=== PATIENT | male | born 1985 | race Caucasian/White ===

== ENCOUNTER 2017-01-11 23:05 | Emergency (ER) | payer OTHER ==
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
[2017-01-11 23:16] VITALS: BP 154/104; PULSE 89; TEMP 98.9; BMI 42.0
== END 2017-01-11 23:22 | disposition home or self-care (01) ==
LOC: FER 23:05
DX: Z04.1 Encounter for examination and observation following transport accident (principal); V43.52XA Car driver injured in collision with other type car in traffic accident, initial encounter; Y93.89 Activity, other specified; Y92.410 Unspecified street and highway as the place of occurrence of the external cause; J45.909 Unspecified asthma, uncomplicated; I10 Essential (primary) hypertension
CPT/HCPCS: 99281-25

== ENCOUNTER 2018-03-12 18:20 | Emergency (ER) | payer OTHER ==
[2018-03-12 18:28] VITALS: BP 189/120; PULSE 82; TEMP 98.1; BMI 40.0
--- NOTE | 2018-03-12 18:41 | PDOC ---
History of Present Illness - General Chief Complaint: Injury Stated Complaint: ANKLE INJURY Time Seen by Provider: 03/12/18 18:29 History Source: Patient - History of Present Illness Occurred: reports: this evening Severity: Yes: moderate Lower Extremity Pain Location: left: ankle Method of Injury: Yes: twisted Past History - Past Medical History Allergies/Adverse Reactions: Allergies Allergy/AdvReac Type Severity Reaction Status Date / Time Penicillins Allergy Verified 03/12/18 18:24 Home Medications: Ambulatory Orders Losartan Potassium [Cozaar] 25 mg PO DAILY 02/23/16 Amlodipine Besylate 0 mg PO DAILY 01/11/17 Amlodipine Besylate 5 mg PO DAILY #30 tablet 03/12/18 Asthma: Yes COPD: No HTN: Yes (stop his meds 4 months ago) - Immunization History Immunization Up to Date: Yes - Suicide/Smoking/Psychosocial Hx Smoking History: Never smoked Have you smoked in the past 12 months: No Hx Alcohol Use: No Drug/Substance Use Hx: No Substance Use Type: None Review of Systems - Review of Systems Respiratory: No: Shortness of Breath Cardiac (ROS): No: Chest Pain ABD/GI: No: Nausea, Vomiting Musculoskeletal: Yes: Joint Pain, Joint Swelling Neurological: No: Headache, Weakness, Dizziness *Physical Exam - Vital Signs Last Vital Signs Temp Pulse Resp BP Pulse Ox 98.1 F 82 18 189/120 H 97 03/12/18 18:24 03/12/18 18:24 03/12/18 18:24 03/12/18 18:24 03/12/18 18:24 - Physical Exam General Appearance: Yes: Appropriately Dressed. No: Apparent Distress HEENT: positive: Normal Voice Neck: positive: Supple Respiratory/Chest: positive: Lungs Clear, Normal Breath Sounds. negative: Respiratory Distress Cardiovascular: positive: Regular Rate, S1, S2 Gastrointestinal/Abdominal: positive: Soft. negative: Tender Extremity: positive: Tender, Swelling (minimal swelling over lateral malaeolus of L ankle) Integumentary: positive: Dry, Warm Neurologic: positive: Fully Oriented, Alert, Normal Mood/Affect, Motor Strength 5/5 Moderate Sedation - Procedure Monitoring Vital Signs: Procedure Monitoring Vital Signs Temperature 98.1 F 03/12/18 18:24 Pulse Rate 82 03/12/18 18:24 Respiratory Rate 18 03/12/18 18:24 Blood Pressure 189/120 H 03/12/18 18:24 O2 Sat by Pulse Oximetry (%) 97 03/12/18 18:24 ED Treatment Course - RADIOLOGY Radiology Studies Ordered: Category Date Time Status ANKLE & FOOT-LEFT* [RAD] Stat Radiology 03/12/18 18:30 Ordered Medical Decision Making - Medical Decision Making 03/12/18 18:40 33 yo M, obesity (BMI 40), HTN, non-compliant w/ meds, here w/ L ankle injury after twisting injury today. Bearing weight but painful See exam Ankle sprain R/o fx -XR -pain control Asymptomatic hypertension BP 189/120 at triage, 178/94 on rpt Has h/o HTN and is non-compliant w/ meds, last took 5 mg norvasc 4 months ago Pt asymptomatic from a BP standpoint -will restart on meds -strongly encourage pmd f/u next week -strict return precautions given 03/12/18 19:11 XR neg for fx. CHANELL placed and crutches given. Will dc w/ RICE, ortho f/u as needed *DC/Admit/Observation/Transfer Diagnosis at time of Disposition: Ankle sprain Qualifiers: Encounter type: initial encounter Involved ligament of ankle: unspecified ligament Laterality: left Qualified Code(s): S93.402A - Sprain of unspecified ligament of left ankle, initial encounter - Discharge Dispostion Disposition: HOME - Prescriptions Prescriptions: Amlodipine Besylate 5 mg PO DAILY #30 tablet - Referrals Referrals: Jermain Ron MD [Staff Physician] - Clark Comer MD [Staff Physician] - - Patient Instructions Printed Discharge Instructions: Essential Hypertension, DI for Ankle Sprain Additional Instructions: Your ankle x-ray was normal. You most likely sustained a sprain. Use CHANELL and elevated extremity for swelling. Take Motrin or Tylenol for pain as needed. Also use crutches for assistance with weight bearing. If pain persists after 2 weeks, please call Dr. Comer of orthopedics. Your blood pressure was significantly elevated in the ED, you were counseled on the dangers of untreated hypertension such as heart disease, stroke and kidney disease. You were restarted on your high blood pressure medication. Please call your PMD on Wednesday and make an appointment for further management. Also consider losing weight as being overweight can significantly increase blood pressure If you develop headache, dizziness, focal weakness, chest pain or shortness of breath, return to ER immediately - Post Discharge Activity
[2018-03-12] MEDS ORDERED: IBUPROFEN 400 MG TABLET (FP) PO ONE ×2 (19:00→19:01)
== END 2018-03-12 19:24 | disposition home or self-care (01) ==
LOC: JERFT 18:20
DX: S93.402A Sprain of unspecified ligament of left ankle, initial encounter (principal); X50.1XXA Overexertion from prolonged static or awkward postures, initial encounter; Y93.89 Activity, other specified; Y92.89 Other specified places as the place of occurrence of the external cause; Y99.8 Other external cause status; I10 Essential (primary) hypertension; Z91.14 Patient's other noncompliance with medication regimen
CPT/HCPCS: 73610-TC-LT-FY; 73630-TC-LT; 99281-25

== ENCOUNTER 2018-05-22 08:52 | Emergency (ER) | payer OTHER ==
[2018-05-22] MEDS ORDERED: ALBUTEROL SO4 2.5/IPRATROPIUM 0.5 INH SOL 3 ML VIAL.NEB. NEB ONE ×2 (09:00→09:30)
[2018-05-22 09:06] VITALS: TEMP 98.4; BMI 38.7
[2018-05-22] MEDS ORDERED: SODIUM CHLORIDE FOR INHALATION 3 ML VIAL.NEB IH ONE (09:42)
--- NOTE | 2018-05-22 09:42 | PDOC ---
History of Present Illness - General Chief Complaint: Shortness of Breath Stated Complaint: ASTHMA / DIF BREATH Time Seen by Provider: 05/22/18 09:04 History Source: Patient Exam Limitations: No Limitations Past History - Past Medical History Allergies/Adverse Reactions: Allergies Allergy/AdvReac Type Severity Reaction Status Date / Time Penicillins Allergy Verified 05/22/18 09:02 Home Medications: Ambulatory Orders Losartan Potassium [Cozaar] 25 mg PO DAILY 02/23/16 Amlodipine Besylate 5 mg PO DAILY #30 tablet 03/12/18 Albuterol 0.083% Nebulizer Pati [Ventolin 0.083% Nebulizer Soln -] 1 neb NEB Q4H PRN #30 vial 05/22/18 Asthma: Yes COPD: No HTN: Yes (stop his meds 4 months ago) - Immunization History Immunization Up to Date: Yes - Suicide/Smoking/Psychosocial Hx Smoking History: Never smoked Have you smoked in the past 12 months: No Hx Alcohol Use: No Drug/Substance Use Hx: No Substance Use Type: None *Physical Exam - Vital Signs Last Vital Signs Temp Pulse Resp BP Pulse Ox 98.4 F 84 20 200/110 H 98 05/22/18 09:02 05/22/18 09:02 05/22/18 09:02 05/22/18 09:02 05/22/18 09:02 - Physical Exam General Appearance: No: Apparent Distress HEENT: positive: Pharynx Normal. negative: Muffled/Hoarse voice, Pharyngeal Erythema, Tonsillar Exudate, Tonsillar Erythema Respiratory/Chest: positive: Lungs Clear, Normal Breath Sounds. negative: Respiratory Distress Cardiovascular: positive: Regular Rhythm, Regular Rate, S1, S2. negative: Murmur Integumentary: positive: Normal Color Neurologic: positive: Alert, Normal Mood/Affect Moderate Sedation - Procedure Monitoring Vital Signs: Procedure Monitoring Vital Signs Temperature 98.4 F 05/22/18 09:02 Pulse Rate 84 05/22/18 09:02 Respiratory Rate 20 05/22/18 09:02 Blood Pressure 200/110 H 05/22/18 09:02 O2 Sat by Pulse Oximetry (%) 98 05/22/18 09:02 ED Treatment Course - Medications Given in the ED: ED Medications Discontinued Medications Generic Name Dose Route Start Last Admin Trade Name Freq PRN Reason Stop Dose Admin Albuterol/Ipratropium 1 amp 05/22/18 09:30 05/22/18 09:36 Duoneb - NEB 05/22/18 09:31 1 amp ONCE ONE Administration Medical Decision Making - Medical Decision Making 33 y/o M with hx of asthma (since childhood, never intubated, never hospitalized ), HTN (on Norvasc 5mg) presents with sob, chest tightness, wheezing x 2 weeks. Also mentions losing voice over course of 2 weeks. Mentions was moving out of apartment and there was a lot of dust which triggered his symptoms. Does not have meds for asthma as has not had an asthma attack since he was a child. Was unable to see a PCP due to his work. Went to [facility] yesterday, where he was given Prednisone, told he had laryngitis and had rx sent for Prednisone and Azithromycin. Patient did not receive any inhaler. Denies fever, cough, rhinorrhea, congestion, sore throat, abd pain, n/v. Patient had already received 1 duoneb on assessment and no wheezing was noted Patient feeling improved after 1 duoneb, but feels 1 more may help Will give 1 more duoneb and also try saline neb for dryness in throat Patient already took Prednisone in morning Vitals were repeated with BP of 143/88 and HR of 98 05/22/18 09:42 Patient feeling much better on reassessment EKG NSR at 92 bpm, nonischemic Stable for dc 05/22/18 10:20 *DC/Admit/Observation/Transfer Diagnosis at time of Disposition: Asthma exacerbation Qualifiers: Asthma severity: mild Asthma persistence: unspecified Qualified Code(s): J45.901 - Unspecified asthma with (acute) exacerbation - Discharge Dispostion Disposition: HOME Condition at time of disposition: Improved Decision to Admit order: No - Prescriptions Prescriptions: Albuterol 0.083% Nebulizer Pati [Ventolin 0.083% Nebulizer Soln -] 1 neb NEB Q4H PRN #30 vial PRN Reason: shortness of breath/wheezing - Referrals Referrals: Lou Walter MD [Primary Care Provider] - 2 Days - Patient Instructions Printed Discharge Instructions: DI for Asthma -- Adult Additional Instructions: Thank you for choosing [facility]. It was a pleasure taking care of you. Use the Albuterol nebulizer as needed for shortness of breath/wheezing Continue taking Prednisone as prescribed You may stop taking the Azithromycin Follow-up with your PCP in 2-3 days Return to the Emergency Department if your symptoms worsen or persist or have other concerning symptoms. - Post Discharge Activity
[2018-05-22 09:44] VITALS: BP 143/88; PULSE 98
--- NOTE | 2018-05-22 12:43 | EKG ---
Test Reason : Blood Pressure : / mmHG Vent. Rate : 092 BPM Atrial Rate : 092 BPM P-R Int : 140 ms QRS Dur : 084 ms QT Int : 350 ms P-R-T Axes : 045 044 028 degrees QTc Int : 432 ms NORMAL SINUS RHYTHM NORMAL ECG NO PREVIOUS ECGS AVAILABLE Confirmed by LUISITO DASH MD ([id number]) on 05/22/2018 12:42:45 PM Referred By: Confirmed By:LUISITO DASH MD
== END 2018-05-22 10:35 | disposition home or self-care (01) ==
LOC: JER 08:52
PROC: 3E0F7GC Introduction of Other Therapeutic Substance into Respiratory Tract, Via Natural or Artificial Opening (ICD-10-PCS; principal; 2018-05-22)
PROC: 3E0F7GC Introduction of Other Therapeutic Substance into Respiratory Tract, Via Natural or Artificial Opening (ICD-10-PCS; 2018-05-22)
DX: J45.901 Unspecified asthma with (acute) exacerbation (principal)
CPT/HCPCS: 93005; 93010; 99282-25

== ENCOUNTER 2019-12-01 17:04 | Inpatient (IN) | payer SELFPAY ==
[2019-12-01] MEDS ORDERED: LOSARTAN POTASSIUM 50 MG TABLET (FP) PO ONE (17:28)
[2019-12-01] MEDS ORDERED: LOSARTAN POTASSIUM 50 MG TABLET (FP) ONE (17:32)
[2019-12-01] MEDS ORDERED: DEXAMETHASONE LIQUID 0.5 MG/5 ML PO ONE (18:26)
--- NOTE | 2019-12-01 18:35 | PDOC ---
History of Present Illness - General Chief Complaint: Sore Throat Stated Complaint: SWOLLEN TONSILS Time Seen by Provider: 12/01/19 17:17 - History of Present Illness Initial Comments: 12/01/19 18:27 34-year-old male past medical history of hypertension. He did not take his hypertensive medication today. Presents for evaluation of sore throat x1 day. States he has a fever at home. Past History - Medical History Allergies/Adverse Reactions: Allergies Allergy/AdvReac Type Severity Reaction Status Date / Time Penicillins Allergy Verified 12/01/19 17:31 Home Medications: Ambulatory Orders Losartan Potassium [Cozaar] 50 mg PO DAILY 02/23/16 Asthma: Yes COPD: No HTN: Yes - Immunization History Immunization Up to Date: Yes - Psycho-Social/Smoking History Smoking History: Never smoked Have you smoked in the past 12 months: No - Substance Abuse Hx (Audit-C & DAST Scrn) How often the patient has a drink containing alcohol: Never Score: In Men: 4 or > Positive; In Women: 3 or > Positive: 0 Screen Result (Pos requires Nsg. Audit-10AR): Negative In the last yr the pt used illegal drug/Rx for NonMed reason: No Score: Yes response is considered Positive: 0 Screen Result (Positive result requires Nsg. DAST-10): Negative Review of Systems - Review of Systems Constitutional: No: Fever HEENTM: Yes: Throat Pain *Physical Exam - Vital Signs Last Vital Signs Temp Pulse Resp BP Pulse Ox 97.8 F 6 L 16 198/126 H 100 12/01/19 17:09 12/01/19 17:09 12/01/19 17:09 12/01/19 17:09 12/01/19 17:09 - Physical Exam 12/01/19 18:28 HEAD: NC/AT EYES: Conjuntiva clear Ears: Canals and TM's normal NOSE: No d/c THROAT: Moist mucous membrances, oral pharanx erythemic without exudate, uvula midline NECK: Supple without adenopathy CARDIAC: S1 S2 LUNGS: CTA Full and Equal breath sounds ABDOMEN: Soft NT ND MS: Full ROM in all joints without edema NEUROLOGIC: No gross sensory or motor deficits, NVID SKIN: Normal color and temperature no lesions or rashes ED Treatment Course - Medications Given in the ED: ED Medications Discontinued Medications Generic Name Dose Route Start Last Admin Trade Name Frezeke PRN Reason Stop Dose Admin Losartan Potassium 100 mg 12/01/19 17:28 12/01/19 17:36 Cozaar - PO 12/01/19 17:29 100 mg ONCE ONE Administration Medical Decision Making - Medical Decision Making 12/01/19 18:28 Strep negative culture sent. Decadron for pain. Will recheck blood pressure. Patient home medication dose was doubled in the emergency room. 12/01/19 20:57 Hospitalist called for admission for uncontrolled hypertension 12/01/19 21:35 Patient signed out to overnight crew Discharge - Discharge Information Problems reviewed: Yes Clinical Impression/Diagnosis: Hypertensive urgency Condition: Stable - Follow up/Referral - Patient Discharge Instructions - Post Discharge Activity
[2019-12-01] MEDS ORDERED: DEXAMETHASONE SOD PHOSPHATE 10 MG/1 ML VIAL ONE (18:36)
[2019-12-01] MEDS ORDERED: ACETAMINOPHEN 500 MG TABLET (FP) PO ONE (21:29)
[2019-12-01] MEDS ORDERED: LABETALOL HCL 100 MG TABLET (FP) PO ONE (21:29)
--- NOTE | 2019-12-01 21:37 | PDOC ---
*Physical Exam - Vital Signs Last Vital Signs Temp Pulse Resp BP Pulse Ox 100.8 F H 117 H 18 191/117 H 96 12/01/19 20:30 12/01/19 20:30 12/01/19 18:35 12/01/19 20:30 12/01/19 20:30 ED Treatment Course - LABORATORY CBC & Chemistry Diagram: 12/01/19 22:10 12/01/19 22:10 - Medications Given in the ED: ED Medications Discontinued Medications Generic Name Dose Route Start Last Admin Trade Name Sandra PRN Reason Stop Dose Admin Dexamethasone 10 mg 12/01/19 18:26 12/01/19 18:41 Decadron Liquid - PO 12/01/19 18:27 10 mg ONCE ONE Administration Losartan Potassium 100 mg 12/01/19 17:28 12/01/19 17:36 Cozaar - PO 12/01/19 17:29 100 mg ONCE ONE Administration Medical Decision Making - Medical Decision Making 12/01/19 21:35 Shortly to set 34-year-old male presenting with throat pain and ear pain found to be strep negative. Patient has history of hypertension noncompliant with meds (losartan) found to be hypertensive to 191/117 and tachycardic to 117 as well as febrile to 100.8. Patient was given 50 mg losartan in the ED without resolution of hypertension. Labs chest x-ray and EKG were ordered which are pending. Patient was signed out to ct pending results and [facility]. Chest XR WNL Pt signed out to medicine team for admission to Dr Oliva's care pending labs and EKG. Labs reviewed after admission Labs show a white blood cell count of 20.9 with shift H&H 16.2/47.5 Alk phos elevated Trope negative Rest of labs noncontributory Discharge - Discharge Information Problems reviewed: Yes Clinical Impression/Diagnosis: Hypertensive urgency Condition: Stable - Admission Yes - Follow up/Referral - Patient Discharge Instructions - Post Discharge Activity
--- NOTE | 2019-12-01 21:49 | PN ---
Teaching Attending Note Name of Resident: Manuela Galo ATTENDING PHYSICIAN STATEMENT I saw and evaluated the patient. I reviewed the resident's note and discussed the case with the resident. I agree with the resident's findings and plan as documented. SUBJECTIVE: Patient is a 34-year-old man with a PMH of Obesity, Asthma, Penicillin allergy and Hypertension (nonadherent with medications) who presents to the ER with sore throat x1 day. States he had a fever at home. Patient denies chest pain, shortness of breath, abdominal pain, headache, palpitations, dizziness, fever, chills, nausea, vomiting, diarrhea, constipation, dysuria, frequency, urgency, melena, hematochezia or hematuria. Denies alcohol, tobacco or illicit drug use. No sick contacts or recent travels. Does not have health insurance. Gets Cozaar sporadically from his sister who is a emissions testing and repair technician. Works in [place]. Family history of DM and HTN in both parents. OBJECTIVE: Alert Vital Signs Period Temp Pulse Resp BP Sys/Streeter Pulse Ox Last 24 Hr 97.8 F-100.8 F 6-117 16-18 191-198/108-126 96-100 HEENT: No Jaundice, eye redness or discharge, PERRLA, EOMI. Normocephalic, atraumatic. Pharyngeal injection; External ears are normal; fluid in right ear canal; hearing is grossly intact. No nasal discharge. Neck: Supple, nontender. No palpable adenopathy or thyromegaly. No JVD Chest: Good effort. Clear to auscultation and percussion. Heart: Regular. No S3, rub or murmur Abdomen: Not distended, soft, nontender and no HSM. No rebound or guarding. Normal bowel sounds. Ext: Peripheral pulses intact. No leg edema. Skin: Warm and dry. No petechiae, rash or ecchymosis. Neuro: Alert. Oriented x3. CN 2-12 grossly intact. Sensation grossly intact in all four extremities and DTR are symmetric. Psych: Appropriate mood and affect. Good insight. Home Medications Medication Instructions Recorded Losartan Potassium [Cozaar] 50 mg PO DAILY 02/23/16 Abnormal Lab Results 12/01/19 12/01/19 12/02/19 22:10 22:10 00:05 WBC 20.9 H Absolute Neuts (auto) 20.0 H Neutrophils % 96.0 H Neutrophils % (Manual) 95.0 H Lymphocytes % 2.4 L Lymphocytes % (Manual) 2.0 L Monocytes % 1.3 L Monocytes % (Manual) 1 L Anion Gap 7 L Random Glucose 143 H Alkaline Phosphatase 141 H Ur Leukocyte Esterase 1+ H Current Medications Generic Name Dose Route Start Last Admin Trade Name Sandra PRN Reason Stop Dose Admin Enoxaparin Sodium 40 mg 12/02/19 10:00 Lovenox - SQ DAILY [place] Hydrochlorothiazide 12.5 mg 12/02/19 10:00 Hctz - PO DAILY [place] Levofloxacin 250 mg in 50 mls @ 50 mls/hr 12/02/19 10:00 Levaquin 250 Mg Premixed Ivpb - IVPB 12/04/19 10:59 DAILY [place] Protocol Lisinopril 20 mg 12/02/19 10:00 Prinivil PO HS [place] ASSESSMENT AND PLAN: 1. Uncontrolled hypertension/Sore throat/Sepsis due to UTI - Group A Strep Rapid test was negative. Nonadherent with his antihypertensive regimen. No acute abnormality on CXR shows cardiomegaly with no evidence of acute lung disease. EKG shows sinus tachycardia at 104/minute and QTc [address]-T wave changes. Will get HbA1c, lipid profile, implement insulin sliding scale, treat with IV Levofloxacin, consult ID and ENT. Give Cepacol for sorethroat. Refer to Nephrology for work up to rule out secondary hypertension. Will start HCTZ 12.5 mg q am and Lisinopril 20 mg Q pm. Consult dry dip worker for assistance with health insurance. Subsequently, will revise regimen to ensure [id number] excellent BP control. Patient counseled on the injurious effects of uncontrolled hypertension. Nonpharmacologic measures to control hypertension like weight loss, salt restriction and exercise stressed. Importance of adherence to treatment regimen and attainment of normotension emphasized. Viral testing for COVID-19 ordered and patient placed on airborne, droplet and contact isolation. 2. Obesity Counseled on the risks associated with obesity. Will provide patient all the necessary assistance, counseling and positive reinforcement to facilitate weight loss. Consult route inspector. 3. DVT prophylaxis - Lovenox 40 mg SQ q 24 hours. 4. Advance directives - Full code
[2019-12-01] MEDS ORDERED: ACETAMINOPHEN 500 MG TABLET (FP) ONE (22:29)
[2019-12-01 22:33] LABS: BASO % 0.3 % (0-2.0); HEMATOCRIT 47.5 % (35.4-49); HEMOGLOBIN 16.2 GM/dL (11.7-16.9); LYMPH % 2.4 % (8-40); MCH 30.8 pg (25.7-33.7); MCHC 34.2 g/dl (32.0-35.9); MEAN CELL VOLUME 90.1 fl (80-96); MEAN PLT VOLUME 8.5 fl (7.5-11.1); MONO % 1.3 % (3.8-10.2); PLATELET COUNT 299 K/MM3 (134-434); RBC 5.27 M/mm3 (4.00-5.60); RDW 13.9 % (11.9-15.9); WHITE BLOOD COUNT 20.9 K/mm3 (4.0-10.0)
[2019-12-01 23:03] LABS: ALK PHOS 141 U/L (45-117); ANION GAP 7 MMOL/L (8-16); BILIRUBIN,TOTAL 0.7 mg/dL (0.2-1); BLOOD UREA NITROGEN 13.5 mg/dL (7-18); CALCIUM 9.2 mg/dL (8.5-10.1); CHLORIDE 105 mmol/L (98-107); CO2 27 mmol/L (21-32); CREATININE 1.1 mg/dL (0.55-1.3); GLUCOSE,RANDOM 143 mg/dL (74-106); POTASSIUM 4.6 mmol/L (3.5-5.1); SGOT/AST 25 U/L (15-37); SGPT/ALT 43 U/L (13-61); SODIUM 139 mmol/L (136-145); TOT PROT 8.2 g/dl (6.4-8.2)
[2019-12-01 23:07] LABS: PLATELET ESTIMATE ADEQUATE
[2019-12-02 00:34] LABS: EPI CELLS 36 /uL (0-25.1); HYALINE CASTS 2 /uL (0-3.1); PH,URINE 5.5 (5.0-8.0); URINE APPEARANCE CLOUDY; URINE BACTERIA 281 /uL (0-1359); URINE BILIRUBIN NEGATIVE (NEGATIVE); URINE COLOR YELLOW; URINE GLUCOSE (UA) NEGATIVE (NEGATIVE); URINE KETONE NEGATIVE (NEGATIVE); URINE LEUK ESTERASE 1+ (NEGATIVE); URINE NITRITE NEGATIVE (NEGATIVE); URINE PROTEIN NEGATIVE (NEGATIVE); URINE RBC 12 /uL (0-23.9); URINE WBC 78 /uL (0-25.8)
[2019-12-02] MEDS ORDERED: AZTREONAM 1 GM VIAL (RESTRICTED TO ID) IVPB SCH (01:30)
[2019-12-02] MEDS: AZTREONAM 1 GM in DEXTROSE 5%-WATER - 50 ML IVPB SCH ×2 (02:30→02:41)
[2019-12-02] MEDS ORDERED: AZTREONAM 1 GM VIAL (RESTRICTED TO ID) ONE (02:33)
[2019-12-02] MEDS ORDERED: CLINDAMYCIN 600MG PREMIX IVPB 600 MG/50 ML BAG IVPB ONE (02:33)
--- NOTE | 2019-12-02 03:31 | HP ---
CHIEF COMPLAINT: sore throat and b/l earache PCP: none HISTORY OF PRESENT ILLNESS: 34 y.o. M PMH HTN presenting for a sore throat that he has been experiencing for the past 2 days. The pain has been stable and is not interfering with his daily functioning. While being worked up by ED staff was noted to be hypertensive to 198/126. Patient states he did not take his home dose of losartan 50mg today as he forgot. The patient is not prescribed hypertension medications as he does not see a PCP, and instead gets his losartan through his sister's pharmacy that she works at as a [employer]. Patient denies sxs including chest pain, lightheadedness, dizziness, vision changes, SOB, dysphagia. Denies recent trauma to the throat. No recent antibiotic use. ER course was notable for: (1) Losartan 100mg PO (2) Decadron 10mg IV (3) negative rapid strep test (4): EKG showing Sinus tachycardia rate 104bpm. No ST-T changes. qtc 439. Recent Travel: denies PAST MEDICAL HISTORY: htn PAST SURGICAL HISTORY: denies Social History: Smoking: denies Alcohol:denies Drugs: denies Allergies Penicillins Allergy (Verified 12/01/19 17:31) Family History: DM and HTN in both mother and father HOME MEDICATIONS: Home Medications Medication Instructions Recorded Losartan Potassium [Cozaar] 50 mg PO DAILY 02/23/16 REVIEW OF SYSTEMS CONSTITUTIONAL: Absent: fever, chills, diaphoresis, generalized weakness, malaise, loss of appetite, weight change HEENT: throat pain Absent: rhinorrhea, nasal congestion, throat swelling, difficulty swallowing, mouth swelling, ear pain, eye pain, visual changes CARDIOVASCULAR: Absent: chest pain, syncope, palpitations, irregular heart rate, lightheadedness, peripheral edema RESPIRATORY: Absent: cough, shortness of breath, dyspnea with exertion, orthopnea, wheezing, stridor, hemoptysis GASTROINTESTINAL: Absent: abdominal pain, abdominal distension, nausea, vomiting, diarrhea, constipation, melena, hematochezia GENITOURINARY: Absent: dysuria, frequency, urgency, hesitancy, hematuria, flank pain, genital pain MUSCULOSKELETAL: Absent: myalgia, arthralgia, joint swelling, back pain, neck pain SKIN: Absent: rash, itching, pallor HEMATOLOGIC/IMMUNOLOGIC: Absent: easy bleeding, easy bruising, lymphadenopathy, frequent infections ENDOCRINE: Absent: unexplained weight gain, unexplained weight loss, heat intolerance, cold intolerance NEUROLOGIC: Absent: headache, focal weakness or paresthesias, dizziness, unsteady gait, seizure, mental status changes, bladder or bowel incontinence PSYCHIATRIC: Absent: anxiety, depression, suicidal or homicidal ideation, hallucinations. PHYSICAL EXAMINATION Vital Signs - 24 hr 12/01/19 12/01/19 12/01/19 17:09 18:35 20:30 Temperature 97.8 F 100.8 F H Pulse Rate 6 L Pulse Rate [ 89 117 H Left] Respiratory 16 18 Rate Blood Pressure 198/126 H Blood Pressure 197/108 H 191/117 H [Left Arm] O2 Sat by Pulse 100 96 Oximetry (%) 12/01/19 12/02/19 23:41 01:30 Temperature 101.8 F H 99.3 F Pulse Rate Pulse Rate [ 98 H 89 Left] Respiratory 18 18 Rate Blood Pressure Blood Pressure 144/83 116/79 [Left Arm] O2 Sat by Pulse 107 H 96 Oximetry (%) GENERAL: Awake, alert, and fully oriented, in no acute distress. HEENT: clear fluid anterior to R tympanic membrane on otoscope exam. Oropharynx WNL, no erythema. LUNGS: Breath sounds equal, clear to auscultation bilaterally. No wheezes, and no crackles. No accessory muscle use. HEART: Regular rate and rhythm, normal S1 and S2 without murmur, rub or gallop. ABDOMEN: Soft, nontender, not distended, normoactive bowel sounds. No CVA tenderness EXTREMITIES: 2+ pulses, warm, well-perfused. No calf tenderness. No peripheral edema. NEUROLOGICAL: Cranial nerves II-XII intact. PSYCHIATRIC: Cooperative. Good eye contact. Appropriate mood and affect. SKIN: Warm, dry, normal turgor, no rashes or lesions noted, normal capillary refill. Laboratory Results - last 24 hr 12/01/19 12/01/19 12/01/19 17:30 22:10 22:10 WBC 20.9 H RBC 5.27 Hgb 16.2 Hct 47.5 MCV 90.1 MCH 30.8 MCHC 34.2 RDW 13.9 Plt Count 299 MPV 8.5 Absolute Neuts (auto) 20.0 H Total Counted 100 Neutrophils % 96.0 H Neutrophils % (Manual) 95.0 H Band Neutrophils % 2.0 Lymphocytes % 2.4 L Lymphocytes % (Manual) 2.0 L Monocytes % 1.3 L Monocytes % (Manual) 1 L Eosinophils % 0.0 Basophils % 0.3 Nucleated RBC % 0 Platelet Estimate Adequate Platelet Comment No clumping noted Sodium 139 Potassium 4.6 Chloride 105 Carbon Dioxide 27 Anion Gap 7 L BUN 13.5 Creatinine 1.1 Est GFR (CKD-EPI)AfAm 102.40 Est GFR (CKD-EPI)NonAf 88.36 Random Glucose 143 H Calcium 9.2 Total Bilirubin 0.7 AST 25 ALT 43 Alkaline Phosphatase 141 H Creatine Kinase 182 Creatine Kinase Index 1.1 CK-MB (CK-2) 2.1 Troponin I < 0.02 Total Protein 8.2 Albumin 4.0 Urine Color Urine Appearance Urine pH Ur Specific [place] Urine Protein Urine Glucose (UA) Urine Ketones Urine Blood Urine Nitrite Urine Bilirubin Urine Urobilinogen Ur Leukocyte Esterase Urine WBC (Auto) Urine RBC (Auto) Urine Casts (Auto) U Epithel Cells (Auto) Urine Bacteria (Auto) Group A Strep Rapid Negative 12/02/19 00:05 WBC RBC Hgb Hct MCV MCH MCHC RDW Plt Count MPV Absolute Neuts (auto) Total Counted Neutrophils % Neutrophils % (Manual) Band Neutrophils % Lymphocytes % Lymphocytes % (Manual) Monocytes % Monocytes % (Manual) Eosinophils % Basophils % Nucleated RBC % Platelet Estimate Platelet Comment Sodium Potassium Chloride Carbon Dioxide Anion Gap BUN Creatinine Est GFR (CKD-EPI)AfAm Est GFR (CKD-EPI)NonAf Random Glucose Calcium Total Bilirubin AST ALT Alkaline Phosphatase Creatine Kinase Creatine Kinase Index CK-MB (CK-2) Troponin I Total Protein Albumin Urine Color Yellow Urine Appearance Cloudy Urine pH 5.5 Ur Specific [place] 1.016 Urine Protein Negative Urine Glucose (UA) Negative Urine Ketones Negative Urine Blood Negative Urine Nitrite Negative Urine Bilirubin Negative Urine Urobilinogen 1.0 Ur Leukocyte Esterase 1+ H Urine WBC (Auto) 78 Urine RBC (Auto) 12 Urine Casts (Auto) 2 U Epithel Cells (Auto) 36 Urine Bacteria (Auto) 281 Group A Strep Rapid ASSESSMENT/PLAN: 34 y.o. M PMH HTN presenting for a sore throat, admitted for hypertensive urgency. #Hypertensive urgency -s/p 100mg losartan PO in ED -BP showing improvement, most recent 140s/ 80s -Will start patient on Lisinopril 20mg HS, and hydrochlorathiazide 12.5mg QAM--- of note, pt is endorsing possible norvasc allergy (gets "lumps on his skin" -Nephro Dr. Varma consulted to r/o secondary causes of HTN #Sepsis 2/2 UTI -will cover w/ levaquin; avoid PCN products 2/2 allergy -f/u urine culture & sensitivities -monitor wbc -tylenol prn for fever -ID consulted- Dr. Dobbs #Throat pain -c/o throat pain. Oropharynx is clear. + clear fluid noted at entrance of R tympanic membrane on otoscope exam -ENT consulted, Dr. Vincent -no abx for R ear at this time, no significant pain & have current source of sepsis. continue levaquin for UTI & f/u ENT recs #Obesity -counselled on importance of healthy diet and exercise -f/u Hba1c, lipid panel #FEN -no standing fluids -trend & replete lytes -Na & fat controlled diet #DVT PPX: lovenox 40mg sq daily #Dispo admit to med surg social work consulted, patient has no insurance ATTENDING PHYSICIAN STATEMENT I saw and evaluated the patient. I reviewed the resident's note and discussed the case with the resident. I agree with the resident's findings and plan as documented. SUBJECTIVE: OBJECTIVE: ASSESSMENT AND PLAN:
[2019-12-02] MEDS: CLINDAMYCIN 600MG PREMIX IVPB 600 MG/50 ML BAG IVPB SCH ×3 (03:45→17:21)
[2019-12-02] MEDS ORDERED: BENZOCAINE/MENTH/CETYLPYRD CL 1 EACH LOZENGE MM PRN (03:59)
[2019-12-02 05:56] VITALS: BMI 42.3
[2019-12-02 08:53] LABS: URINE APPEARANCE CLOUDY; URINE BILIRUBIN NEGATIVE (NEGATIVE); URINE COLOR YELLOW; URINE GLUCOSE (UA) NEGATIVE (NEGATIVE); URINE KETONE TRACE (NEGATIVE); URINE LEUK ESTERASE NEGATIVE (NEGATIVE); URINE NITRITE NEGATIVE (NEGATIVE); URINE PROTEIN NEGATIVE (NEGATIVE); URINE UROBILINOGEN 0.2 mg/dL (0.2-1.0)
[2019-12-02 09:14] LABS: BASO % 0.1 % (0-2.0); EOS % 0.1 % (0-4.5); HEMATOCRIT 44.2 % (35.4-49); HEMOGLOBIN 14.8 GM/dL (11.7-16.9); LYMPH % 3.6 % (8-40); MCH 30.7 pg (25.7-33.7); MCHC 33.4 g/dl (32.0-35.9); MEAN CELL VOLUME 91.8 fl (80-96); MEAN PLT VOLUME 8.9 fl (7.5-11.1); MONO % 4.4 % (3.8-10.2); NEUT % 91.8 % (42.8-82.8); PLATELET COUNT 261 K/MM3 (134-434); RBC 4.81 M/mm3 (4.00-5.60)
[2019-12-02 09:41] LABS: ALBUMIN 3.5 g/dl (3.4-5.0); BILIRUBIN,TOTAL 0.5 mg/dL (0.2-1); BLOOD UREA NITROGEN 22.2 mg/dL (7-18); CALCIUM 8.8 mg/dL (8.5-10.1); CREATININE 1.3 mg/dL (0.55-1.3); PHOSPHOROUS 2.1 mg/dL (2.5-4.9); POTASSIUM 4.2 mmol/L (3.5-5.1); TOT PROT 7.4 g/dl (6.4-8.2)
[2019-12-02] MEDS ORDERED: HYDROCHLOROTHIAZIDE 12.5 MG CAPSULE (FP) PO SCH ×2 (10:00→10:56)
[2019-12-02] MEDS: ENOXAPARIN NA (PORCINE) 40 MG/0.4 ML DISP.SYRIN SQ SCH (10:03)
[2019-12-02] MEDS: LISINOPRIL 20 MG TABLET (FP) PO SCH ×2 (10:03→21:55)
--- NOTE | 2019-12-02 10:16 | EKG ---
Test Reason : Blood Pressure : / mmHG Vent. Rate : 104 BPM Atrial Rate : 104 BPM P-R Int : 134 ms QRS Dur : 076 ms QT Int : 334 ms P-R-T Axes : 046 037 030 degrees QTc Int : 439 ms SINUS TACHYCARDIA OTHERWISE NORMAL ECG WHEN COMPARED WITH ECG OF 22-MAY-2018 10:05, NO SIGNIFICANT CHANGE WAS FOUND Confirmed by LUISITO DASH MD ([id number]) on 12/02/2019 10:15:36 AM Referred By: Confirmed By:LUISITO DASH MD
[2019-12-02 11:17] LABS: ANISOCYTOSIS 0; MACROCYTOSIS 0; PLATELET ESTIMATE NORMAL
[2019-12-02] MEDS ORDERED: IBUPROFEN 400 MG TABLET (FP) PO ONE (11:24)
[2019-12-02] MEDS ORDERED: ACETAMINOPHEN 1000 MG/100 ML VIAL (NON FORMULARY) IVPB ONE (11:24)
[2019-12-02] MEDS: FAMOTIDINE 20 MG TABLET PO SCH (12:18)
[2019-12-02] MEDS: methylPREDNISolone 4 MG TABLET PO SCH (12:29)
--- NOTE | 2019-12-02 13:59 | PN ---
Physical Exam: SUBJECTIVE: Patient seen and examined at bedside, admitted for tonsillitis likely viral in origin and hypertensive urgency, now BP more controlled, needs steroids/NSaids and viral swab for throat, awaiting ENT evaluation. VSS. OBJECTIVE: Vital Signs Period Temp Pulse Resp BP Sys/Streeter Pulse Ox Last 24 Hr 97.8 F-101.8 F 6-117 16-18 116-198/68-126 95-107 GENERAL: The patient is awake, alert, and fully oriented, in no acute distress. HEENT NC/AT, EOMI, neck supple, posterior oropharynx erythematous without any visible abscesses, Grade 4 enlargement of tonsils without visible plaques/abscesses, acanthosis negricans present on neck LUNGS: CTAB, no crackles or wheezing HEART: Regular rate and rhythm, S1, S2 without murmur, rub or gallop. ABDOMEN: morbidly obese, SOft, NT, BS+ EXTREMITIES: 2+ pulses, warm, well-perfused, no edema. NEUROLOGICAL: Cranial nerves II through XII grossly intact. Normal speech, gait not observed. PSYCH: Normal mood, normal affect. SKIN: Warm, dry, normal turgor, no rashes or lesions noted Laboratory Results - last 24 hr 12/01/19 12/01/19 12/01/19 17:30 22:10 22:10 WBC 20.9 H RBC 5.27 Hgb 16.2 Hct 47.5 MCV 90.1 MCH 30.8 MCHC 34.2 RDW 13.9 Plt Count 299 MPV 8.5 Absolute Neuts (auto) 20.0 H Total Counted 100 Neutrophils % 96.0 H Neutrophils % (Manual) 95.0 H Band Neutrophils % 2.0 Lymphocytes % 2.4 L Lymphocytes % (Manual) 2.0 L Monocytes % 1.3 L Monocytes % (Manual) 1 L Eosinophils % 0.0 Eosinophils % (Manual) Basophils % 0.3 Basophils % (Manual) Myelocytes % (Man) Promyelocytes % (Man) Blast Cells % (Manual) Nucleated RBC % 0 Metamyelocytes Hypochromia Platelet Estimate Adequate Platelet Comment No clumping noted Polychromasia Anisocytosis Microcytosis Macrocytosis Sodium 139 Potassium 4.6 Chloride 105 Carbon Dioxide 27 Anion Gap 7 L BUN 13.5 Creatinine 1.1 Est GFR (CKD-EPI)AfAm 102.40 Est GFR (CKD-EPI)NonAf 88.36 Random Glucose 143 H Hemoglobin A1c % Calcium 9.2 Phosphorus Magnesium Total Bilirubin 0.7 AST 25 ALT 43 Alkaline Phosphatase 141 H Creatine Kinase 182 Creatine Kinase Index 1.1 CK-MB (CK-2) 2.1 Troponin I < 0.02 Total Protein 8.2 Albumin 4.0 Urine Color Urine Appearance Urine pH Ur Specific [place] Urine Protein Urine Glucose (UA) Urine Ketones Urine Blood Urine Nitrite Urine Bilirubin Urine Urobilinogen Ur Leukocyte Esterase Urine WBC (Auto) Urine RBC (Auto) Urine Casts (Auto) U Epithel Cells (Auto) Urine Bacteria (Auto) Group A Strep Rapid Negative 12/02/19 12/02/19 12/02/19 00:05 04:50 08:00 WBC 25.0 H RBC 4.81 Hgb 14.8 Hct 44.2 MCV 91.8 MCH 30.7 MCHC 33.4 RDW 14.0 Plt Count 261 MPV 8.9 Absolute Neuts (auto) 23.0 H Total Counted Neutrophils % 91.8 H Neutrophils % (Manual) 84.9 H Band Neutrophils % 10.1 Lymphocytes % 3.6 L D Lymphocytes % (Manual) 2.0 L Monocytes % 4.4 D Monocytes % (Manual) 2 L D Eosinophils % 0.1 D Eosinophils % (Manual) 0.0 Basophils % 0.1 Basophils % (Manual) 0.0 Myelocytes % (Man) 0 Promyelocytes % (Man) 0 Blast Cells % (Manual) 0 Nucleated RBC % 0 Metamyelocytes 0 Hypochromia 0 Platelet Estimate Normal Platelet Comment Polychromasia 0 Anisocytosis 0 Microcytosis 0 Macrocytosis 0 Sodium Potassium Chloride Carbon Dioxide Anion Gap BUN Creatinine Est GFR (CKD-EPI)AfAm Est GFR (CKD-EPI)NonAf Random Glucose Hemoglobin A1c % Calcium Phosphorus Magnesium Total Bilirubin AST ALT Alkaline Phosphatase Creatine Kinase Creatine Kinase Index CK-MB (CK-2) Troponin I Total Protein Albumin Urine Color Yellow Yellow Urine Appearance Cloudy Cloudy Urine pH 5.5 5.0 Ur Specific [place] 1.016 1.025 Urine Protein Negative Negative Urine Glucose (UA) Negative Negative Urine Ketones Negative Trace H Urine Blood Negative Negative Urine Nitrite Negative Negative Urine Bilirubin Negative Negative Urine Urobilinogen 1.0 0.2 Ur Leukocyte Esterase 1+ H Negative Urine WBC (Auto) 78 Urine RBC (Auto) 12 Urine Casts (Auto) 2 U Epithel Cells (Auto) 36 Urine Bacteria (Auto) 281 Group A Strep Rapid 12/02/19 12/02/19 08:00 08:00 WBC RBC Hgb Hct MCV MCH MCHC RDW Plt Count MPV Absolute Neuts (auto) Total Counted Neutrophils % Neutrophils % (Manual) Band Neutrophils % Lymphocytes % Lymphocytes % (Manual) Monocytes % Monocytes % (Manual) Eosinophils % Eosinophils % (Manual) Basophils % Basophils % (Manual) Myelocytes % (Man) Promyelocytes % (Man) Blast Cells % (Manual) Nucleated RBC % Metamyelocytes Hypochromia Platelet Estimate Platelet Comment Polychromasia Anisocytosis Microcytosis Macrocytosis Sodium 141 Potassium 4.2 Chloride 104 Carbon Dioxide 27 Anion Gap 9 BUN 22.2 H Creatinine 1.3 Est GFR (CKD-EPI)AfAm 83.68 Est GFR (CKD-EPI)NonAf 72.20 Random Glucose 140 H Hemoglobin A1c % 6.1 Calcium 8.8 Phosphorus 2.1 L Magnesium 2.0 Total Bilirubin 0.5 AST 16 ALT 37 Alkaline Phosphatase 120 H Creatine Kinase Creatine Kinase Index CK-MB (CK-2) Troponin I Total Protein 7.4 Albumin 3.5 Urine Color Urine Appearance Urine pH Ur Specific [place] Urine Protein Urine Glucose (UA) Urine Ketones Urine Blood Urine Nitrite Urine Bilirubin Urine Urobilinogen Ur Leukocyte Esterase Urine WBC (Auto) Urine RBC (Auto) Urine Casts (Auto) U Epithel Cells (Auto) Urine Bacteria (Auto) Group A Strep Rapid Active Medications Generic Name Dose Route Start Last Admin Trade Name Freq PRN Reason Stop Dose Admin Amlodipine Besylate 10 mg 12/03/19 10:00 Norvasc - PO DAILY [facility] Benzocaine/Menthol 1 each 12/02/19 03:59 Cepacol Lozenge - MM PRN PRN SORE THROAT Enoxaparin Sodium 40 mg 12/02/19 10:00 12/02/19 10:03 Lovenox - SQ 40 mg DAILY [place] Administration Famotidine 20 mg 12/02/19 11:30 12/02/19 12:18 Pepcid - PO 20 mg DAILY [place] Administration Levofloxacin 250 mg in 50 mls @ 50 mls/hr 12/02/19 10:00 12/02/19 10:04 Levaquin 250 Mg Premixed Ivpb - IVPB 12/04/19 10:59 50 mls/hr DAILY [place] Administration Protocol Lisinopril 20 mg 12/02/19 10:00 12/02/19 10:03 Prinivil PO 20 mg HS [place] Administration Methylprednisolone 4 mg 12/02/19 11:45 12/02/19 12:29 Medrol - PO 4 mg DAILY [place] Administration ASSESSMENT/PLAN: 34 M HTN urgency Tonsillitis (likely viral in origin) Pre-T2DM Morbid obesity Suspected MERLE Plan: Cont. Levaquin pending cultures Start Medrol for tonsilar inflammation, 1 dose if Ibuprofen Supplement H2 evelio Cont. Cepacol for symptomatic relief, will eventually need tonsillectomy (prone to tonsil infections) ENT evaluation Sleep screening tonight SW referral for health insurance DVT ppx: Ambulation/Lovenox Visit type - Emergency Visit Emergency Visit: Yes ED Registration Date: 12/01/19 Care time: The patient presented to the Emergency Department on the above date and was hospitalized for further evaluation of their emergent condition. - New Patient This patient is new to me today: Yes Date on this admission: 12/02/19 - Critical Care Critical Care patient: No - Discharge Referral Referred to [facility] Med P.C.: No
--- NOTE | 2019-12-02 14:04 | CON.NEP ---
Consult Consult Specialty:: nephrology - History of Present Illness Chief Complaint: sore throat History of Present Illness: This is a pleasant young man who presents with sore throat and fever and is found to have a very high BP. He states he has had hypertension since age 18 an d ahs been on medication. He is obese and has gained more weight recently. he did not take his losartan and his BP was very high but has since improved. No history of kidney disease but has a strong family history of hypertension. Denies edema and has not noticed his urine to tell me if he has foam. - History Source History Provided By: Patient, Medical Record - Past Medical History Pulmonary: Yes: Asthma - Alcohol/Substance Use Hx Alcohol Use: No - Smoking History Smoking history: Current some day smoker Have you smoked in the past 12 months: No Home Medications - Allergies Allergies/Adverse Reactions: Allergies Allergy/AdvReac Type Severity Reaction Status Date / Time Penicillins Allergy Verified 12/01/19 17:31 amlodipine [From Norvasc] AdvReac Mild Verified 12/02/19 06:37 - Home Medications Home Medications: Ambulatory Orders Losartan Potassium [Cozaar] 50 mg PO DAILY 02/23/16 Review of Systems - Review of Systems Constitutional: reports: Fever Eyes: reports: No Symptoms HENT: reports: Throat Pain Neck: reports: No Symptoms Cardiovascular: reports: No Symptoms Respiratory: reports: No Symptoms Gastrointestinal: reports: No Symptoms Genitourinary: reports: No Symptoms Breasts: reports: No Symptoms Reported Musculoskeletal: reports: No Symptoms Integumentary: reports: No Symptoms Neurological: reports: No Symptoms Endocrine: reports: No Symptoms Hematology/Lymphatic: reports: No Symptoms Psychiatric: reports: No Symptoms Nephrology Consult - Height Height: 5 ft 10 in - Weight Weight: 295 lb - BMI Body Mass Index (BMI): 42.3 - Lab Results CBC,BMP: CBC, BMP 12/02/19 08:00 12/02/19 08:00 Anion Gap: Anion Gap Anion Gap 9 MMOL/L (8-16) 12/02/19 08:00 - Imaging Chest X-ray: Report Reviewed - Physical Examination Vital Signs: Vital Signs Temperature 98.8 F 12/02/19 05:45 Pulse Rate 98 H 12/02/19 05:45 Respiratory Rate 18 12/02/19 05:45 Blood Pressure 151/73 08/29/20 05:45 O2 Sat by Pulse Oximetry (%) 96 12/02/19 05:45 Constitutional: Yes: No Distress, Obese Eyes: Yes: Conjunctiva Clear HENT: Yes: Atraumatic, Normocephalic Neck: Yes: Supple, Trachea Midline Cardiovascular: Yes: Regular Rate and Rhythm Respiratory: Yes: Regular, CTA Bilaterally Gastrointestinal: Yes: Normal Bowel Sounds Renal/: Yes: WNL Musculoskeletal: Yes: WNL, Muscle Weakness Edema: No Neurological: Yes: Alert, Oriented Psychiatric: Yes: Alert, Oriented Assessment/Plan IMPRESSION Hypertension possibly due to essential HTN. It wouldnt be unreasonable to check cortisol given weight gain. Can also check aaliyah and renin level. Has a febrile illness likely PLAN check cortisol there is an allergy to amlodipine listed but he seems to be well despite getting it check renin and aaliyah continue marilyn inhibition needs to lose weight leukocytosis work up urine protein and creat MV
--- NOTE | 2019-12-02 14:13 | CON.ID ---
Consult - History of Present Illness History of Present Illness: 34 y.o. male with PMH of HTN (since his teens) , childhood asthma (no history of intubation), and obesity presented with c/o sore throat that began yesterday and low grade fever (100F) with chills the night before. He states he was feeling well prior to developing symptoms. Pt states he felt like his tonsils were larger and had brief sensation of not being able to breathe. He denies SOB/cough, earache, headache, sinus discomfort, chest pain, abd pain/n/v/d, dysuria. 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 No other employees have had signs of illness as per pt. In the ER he was found to have significantly elevated BP (states he has been noncompliant with medications in the past but is taking it regularly for the past 3 months) , wbc of 20K, and temp of 101.8F. In addition, has scattered erythematous rash on lower back and LEs b/l but does not recall getting bitten by anything. Today he states he feels better denying any sore throat, SOB, H/A, dysuria and has no other complaints. BP is better controlled. Afebrile today but wbc has increased to 25K. 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 [employer] History of Recent Travel: No Home Medications - Allergies Allergies/Adverse Reactions: Allergies Allergy/AdvReac Type Severity Reaction Status Date / Time Penicillins Allergy Verified 12/01/19 17:31 amlodipine [From Norvasc] AdvReac Mild Verified 12/02/19 06:37 - Home Medications Home Medications: Ambulatory Orders Losartan Potassium [Cozaar] 50 mg PO DAILY 02/23/16 Review of Systems - Review of Systems Constitutional: reports: No Symptoms Eyes: reports: No Symptoms HENT: reports: No Symptoms Neck: reports: No Symptoms Cardiovascular: reports: No Symptoms Respiratory: reports: No Symptoms Gastrointestinal: reports: No Symptoms Genitourinary: reports: No Symptoms Musculoskeletal: reports: No Symptoms Integumentary: reports: Rash (scattered) Neurological: reports: No Symptoms Endocrine: reports: No Symptoms Hematology/Lymphatic: reports: No Symptoms Psychiatric: reports: No Symptoms Physical Exam Vital Signs: Vital Signs Temperature 98.8 F 12/02/19 05:45 Pulse Rate 98 H 12/02/19 05:45 Respiratory Rate 18 12/02/19 05:45 Blood Pressure 151/73 12/02/19 05:45 O2 Sat by Pulse Oximetry (%) 96 12/02/19 05:45 Constitutional: Yes: No Distress, Calm, Other (Obese) Eyes: Yes: WNL, Conjunctiva Clear, EOM Intact HENT: Yes: WNL Neck: Yes: WNL, Supple, Trachea Midline Cardiovascular: Yes: Regular Rate and Rhythm Respiratory: Yes: CTA Bilaterally Gastrointestinal: Yes: Normal Bowel Sounds, Soft, Abdomen, Obese Renal/: Yes: WNL Musculoskeletal: Yes: WNL Extremities: Yes: WNL Edema: No Integumentary: Yes: Rash (scattered maculopapular (? insect bites) on b/l LE, arms, lower back) Neurological: Yes: Alert, Oriented ...Motor Strength: WNL Labs: CBC, BMP 12/02/19 08:00 12/02/19 08:00 Laboratory Tests 12/01/19 12/01/19 12/01/19 17:30 22:10 22:10 WBC 20.9 H RBC 5.27 Hgb 16.2 Hct 47.5 MCV 90.1 MCH 30.8 MCHC 34.2 RDW 13.9 Plt Count 299 MPV 8.5 Absolute Neuts (auto) 20.0 H Total Counted 100 Neutrophils % 96.0 H Neutrophils % (Manual) 95.0 H Band Neutrophils % 2.0 Lymphocytes % 2.4 L Lymphocytes % (Manual) 2.0 L Monocytes % 1.3 L Monocytes % (Manual) 1 L Eosinophils % 0.0 Eosinophils % (Manual) Basophils % 0.3 Basophils % (Manual) Myelocytes % (Man) Promyelocytes % (Man) Blast Cells % (Manual) Nucleated RBC % 0 Metamyelocytes Hypochromia Platelet Estimate Adequate Platelet Comment No clumping noted Polychromasia Anisocytosis Microcytosis Macrocytosis Sodium 139 Potassium 4.6 Chloride 105 Carbon Dioxide 27 Anion Gap 7 L BUN 13.5 Creatinine 1.1 Est GFR (CKD-EPI)AfAm 102.40 Est GFR (CKD-EPI)NonAf 88.36 Random Glucose 143 H Hemoglobin A1c % Calcium 9.2 Phosphorus Magnesium Total Bilirubin 0.7 AST 25 ALT 43 Alkaline Phosphatase 141 H Creatine Kinase 182 Creatine Kinase Index 1.1 CK-MB (CK-2) 2.1 Troponin I < 0.02 Total Protein 8.2 Albumin 4.0 Urine Color Urine Appearance Urine pH Ur Specific [place] Urine Protein Urine Glucose (UA) Urine Ketones Urine Blood Urine Nitrite Urine Bilirubin Urine Urobilinogen Ur Leukocyte Esterase Urine WBC (Auto) Urine RBC (Auto) Urine Casts (Auto) U Epithel Cells (Auto) Urine Bacteria (Auto) Group A Strep Rapid Negative 12/02/19 12/02/19 12/02/19 00:05 04:50 08:00 WBC 25.0 H RBC 4.81 Hgb 14.8 Hct 44.2 MCV 91.8 MCH 30.7 MCHC 33.4 RDW 14.0 Plt Count 261 MPV 8.9 Absolute Neuts (auto) 23.0 H Total Counted Neutrophils % 91.8 H Neutrophils % (Manual) 84.9 H Band Neutrophils % 10.1 Lymphocytes % 3.6 L D Lymphocytes % (Manual) 2.0 L Monocytes % 4.4 D Monocytes % (Manual) 2 L D Eosinophils % 0.1 D Eosinophils % (Manual) 0.0 Basophils % 0.1 Basophils % (Manual) 0.0 Myelocytes % (Man) 0 Promyelocytes % (Man) 0 Blast Cells % (Manual) 0 Nucleated RBC % 0 Metamyelocytes 0 Hypochromia 0 Platelet Estimate Normal Platelet Comment Polychromasia 0 Anisocytosis 0 Microcytosis 0 Macrocytosis 0 Sodium Potassium Chloride Carbon Dioxide Anion Gap BUN Creatinine Est GFR (CKD-EPI)AfAm Est GFR (CKD-EPI)NonAf Random Glucose Hemoglobin A1c % Calcium Phosphorus Magnesium Total Bilirubin AST ALT Alkaline Phosphatase Creatine Kinase Creatine Kinase Index CK-MB (CK-2) Troponin I Total Protein Albumin Urine Color Yellow Yellow Urine Appearance Cloudy Cloudy Urine pH 5.5 5.0 Ur Specific [place] 1.016 1.025 Urine Protein Negative Negative Urine Glucose (UA) Negative Negative Urine Ketones Negative Trace H Urine Blood Negative Negative Urine Nitrite Negative Negative Urine Bilirubin Negative Negative Urine Urobilinogen 1.0 0.2 Ur Leukocyte Esterase 1+ H Negative Urine WBC (Auto) 78 Urine RBC (Auto) 12 Urine Casts (Auto) 2 U Epithel Cells (Auto) 36 Urine Bacteria (Auto) 281 Group A Strep Rapid 12/02/19 12/02/19 08:00 08:00 WBC RBC Hgb Hct MCV MCH MCHC RDW Plt Count MPV Absolute Neuts (auto) Total Counted Neutrophils % Neutrophils % (Manual) Band Neutrophils % Lymphocytes % Lymphocytes % (Manual) Monocytes % Monocytes % (Manual) Eosinophils % Eosinophils % (Manual) Basophils % Basophils % (Manual) Myelocytes % (Man) Promyelocytes % (Man) Blast Cells % (Manual) Nucleated RBC % Metamyelocytes Hypochromia Platelet Estimate Platelet Comment Polychromasia Anisocytosis Microcytosis Macrocytosis Sodium 141 Potassium 4.2 Chloride 104 Carbon Dioxide 27 Anion Gap 9 BUN 22.2 H Creatinine 1.3 Est GFR (CKD-EPI)AfAm 83.68 Est GFR (CKD-EPI)NonAf 72.20 Random Glucose 140 H Hemoglobin A1c % 6.1 Calcium 8.8 Phosphorus 2.1 L Magnesium 2.0 Total Bilirubin 0.5 AST 16 ALT 37 Alkaline Phosphatase 120 H Creatine Kinase Creatine Kinase Index CK-MB (CK-2) Troponin I Total Protein 7.4 Albumin 3.5 Urine Color Urine Appearance Urine pH Ur Specific [place] Urine Protein Urine Glucose (UA) Urine Ketones Urine Blood Urine Nitrite Urine Bilirubin Urine Urobilinogen Ur Leukocyte Esterase Urine WBC (Auto) Urine RBC (Auto) Urine Casts (Auto) U Epithel Cells (Auto) Urine Bacteria (Auto) Group A Strep Rapid Imaging - Results Chest X-ray: Report Reviewed Problem List - Problems (1) Hypertensive urgency Code(s): I16.0 - HYPERTENSIVE URGENCY (2) Leukocytosis Code(s): D72.829 - ELEVATED WHITE BLOOD CELL COUNT, UNSPECIFIED (3) Fever Code(s): R50.9 - FEVER, UNSPECIFIED Assessment/Plan Fever Leukocytosis Hypertensive urgency Obesity Rash - ? allergic reaction vs insect bites -- pt with increase in wbc (pt on steroids), afebrile today -- repeat U/A neg., rapid strep negative -- for now continue Levaquin, add Clindamycin -- f/u blood/urine cultures, throat culture, Viral panels, EBV, check CMV -- monitor wbc trend/temps closely -- if wbc/temps remain elevated suggest CT head/ neck -- ENT to evaluate -- BP control , Nephrology following Will follow Thank you
--- NOTE | 2019-12-02 19:20 | CONSULT ---
Consult - text type - Consultation Consultation Note: ENT consult 34 yo man with a sore throat was noted by another MD to have fluid "anterior" to his right TM. Denies ear sx. Sore throat is improving on clindamycin. Hx of tonsillitis, says it was worse a few days ago. P/WD obese male laying comfortably in bed OC/OP 2+ tonsils with minimal exudate EAC/TMs normal AU Imp: acute tonsillitis, improving. No evident ear pathology. Recommend outpatient f/u if throat sx do not resolve. Reconsult prn. No ear intervention needed.
[2019-12-03] MEDS: CLINDAMYCIN 600MG PREMIX IVPB 600 MG/50 ML BAG IVPB SCH ×3 (02:01→17:07)
[2019-12-03 08:44] LABS: HEMATOCRIT 44.9 % (35.4-49); HEMOGLOBIN 14.9 GM/dL (11.7-16.9); LYMPH % 8.2 % (8-40); MCH 30.3 pg (25.7-33.7); MCHC 33.1 g/dl (32.0-35.9); MEAN CELL VOLUME 91.4 fl (80-96); MEAN PLT VOLUME 8.7 fl (7.5-11.1); MONO % 7.2 % (3.8-10.2); NEUT % 84.6 % (42.8-82.8); PLATELET COUNT 298 K/MM3 (134-434); RBC 4.92 M/mm3 (4.00-5.60); RDW 14.3 % (11.9-15.9); WHITE BLOOD COUNT 21.7 K/mm3 (4.0-10.0)
[2019-12-03 09:12] LABS: ALBUMIN 3.4 g/dl (3.4-5.0); BILIRUBIN,TOTAL 0.4 mg/dL (0.2-1); BLOOD UREA NITROGEN 22.9 mg/dL (7-18); CALCIUM 9.2 mg/dL (8.5-10.1); POTASSIUM 4.6 mmol/L (3.5-5.1); TOT PROT 7.3 g/dl (6.4-8.2)
[2019-12-03] MEDS ORDERED: PT OWN MED DRAWER 7, Y5N ONE (09:12)
[2019-12-03] MEDS: amLODIPine BESYLATE 10 MG TABLET (FP) PO SCH (09:29)
[2019-12-03] MEDS: ENOXAPARIN NA (PORCINE) 40 MG/0.4 ML DISP.SYRIN SQ SCH (09:29)
[2019-12-03] MEDS: FAMOTIDINE 20 MG TABLET PO SCH (09:29)
[2019-12-03] MEDS: methylPREDNISolone 4 MG TABLET PO SCH (09:29)
[2019-12-03 09:53] LABS: ANISOCYTOSIS 1+; MACROCYTOSIS 0; PLATELET ESTIMATE NORMAL
--- NOTE | 2019-12-03 11:19 | PN ---
Progress Note (short form) - Note Progress Note: Patient is afebrile still a pain in his throat denies any fever chills nausea vomiting. His white cell count is still high. Seen by ENT. Vital Signs Period Temp Pulse Resp BP Sys/Streeter Pulse Ox Last 24 Hr 97.4 F-98.6 F 63-84 20-20 122-152/65-102 97-98 Review of system Head no headache no dizziness Ear nose throat no epistaxis Cardiovascular no chest pain Pulmonary no wheezing no coughing GI no abdominal pain Endocrine no history of diabetes hypothyroidism Neuro no history of stroke Dermatology no rash Locomotor no history of joint pain Rest of review of systems are negative Vital Signs Period Temp Pulse Resp BP Sys/Streeter Pulse Ox Last 24 Hr 97.4 F-98.6 F 63-84 -20 122-152/65-102 97-98 Patient is comfortable HEENT normal, still have enlarged tonsils. Neck supple no JVD Lungs clear no wheezing Abdomen nontender no organomegaly bowel sounds normal Extremities no edema no cyanosis normal pulses Neurologically he is alert awake oriented, nonfocal Skin no rash noted CBC, BMP 12/03/19 07:40 12/03/19 07:40 Assessment and plan Sore throat sepsis Patient is on IV antibiotic seen by ENT nothing new recommended just to continue antibiotics. His white count still high so we will continue to stay in the hospital. Repeat labs in the morning Hypertension stable on current medication Patient has no primary care doctor advised him to stay tomorrow to the hospital until an he needs follow-up in the clinic. Will continue antibiotic at this time. Visit type - Emergency Visit Emergency Visit: Yes ED Registration Date: 12/01/19 Care time: The patient presented to the Emergency Department on the above date and was hospitalized for further evaluation of their emergent condition. - New Patient This patient is new to me today: Yes Date on this admission: 12/03/19 - Critical Care Critical Care patient: No - Discharge Referral Referred to [facility] No
--- NOTE | 2019-12-03 14:10 | PN ---
Progress Note (short form) - Note Progress Note: RENAL feels better BPs have been essentially controlled throat feels better Last Vital Signs Temp Pulse Resp BP Pulse Ox 97.8 F 80 20 149/99 98 12/03/19 10:00 12/03/19 10:00 12/03/19 10:00 12/03/19 10:00 12/03/19 10:00 lungs clear cvs s1s2 rr abd soft ext no edema CBC, BMP 12/03/19 07:40 12/03/19 07:40 Current Medications Generic Name Dose Route Start Last Admin Trade Name Freq PRN Reason Stop Dose Admin Amlodipine Besylate 10 mg 12/03/19 10:00 12/03/19 09:29 Norvasc - PO 10 mg DAILY [facility] Administration Benzocaine/Menthol 1 each 12/02/19 03:59 Cepacol Lozenge - MM PRN PRN SORE THROAT Enoxaparin Sodium 40 mg 12/02/19 10:00 12/03/19 09:29 Lovenox - SQ 40 mg DAILY [facility] Administration Famotidine 20 mg 12/02/19 11:30 12/03/19 09:29 Pepcid - PO 20 mg DAILY [facility] Administration Levofloxacin 500 mg in 100 mls @ 100 mls/hr 12/02/19 18:45 12/03/19 09:29 Levaquin 500 Mg Premixed Ivpb - IVPB 100 mls/hr DAILY [facility] Administration Protocol Clindamycin Phosphate 600 mg in 50 mls @ 100 mls/hr 12/02/19 18:00 12/03/19 09:29 Cleocin 600 Mg Premix Ivpb - IVPB 100 mls/hr Q8H-IV [facility] Administration Protocol Lisinopril 20 mg 12/02/19 10:00 12/02/19 21:55 Prinivil PO 20 mg HS [facility] Administration Methylprednisolone 4 mg 12/02/19 11:45 12/03/19 09:29 Medrol - PO 4 mg DAILY [facility] Administration IMPRESSION BP is relatively well controlled. It will rise with the steroids he is getting PLAN dc allergy to amlodipine on record since he is on it monitor BP I ordered cortisol level but he is on methylprednisolone. I thought he was on dexamethasone needs to lose weight MV
--- NOTE | 2019-12-03 21:21 | PN ---
Progress Note, Physician History of Present Illness: Pt states he feels better. Sore throat resolving, now afebrile. WBC elevated but trended down from yesterday. No specific complaints. - Current Medication List Current Medications: Active Medications Amlodipine Besylate (Norvasc -) 10 mg PO DAILY [facility] Last Admin: 12/03/19 09:29 Dose: 10 mg Documented by: Benzocaine/Menthol (Cepacol Lozenge -) 1 each MM PRN PRN PRN Reason: SORE THROAT Enoxaparin Sodium (Lovenox -) 40 mg SQ DAILY [facility] Last Admin: 12/03/19 09:29 Dose: 40 mg Documented by: Famotidine (Pepcid -) 20 mg PO DAILY [facility] Last Admin: 12/03/19 09:29 Dose: 20 mg Documented by: Levofloxacin (Levaquin 500 Mg Premixed Ivpb -) 500 mg in 100 mls @ 100 mls/hr IVPB DAILY [facility]; Protocol Last Admin: 12/03/19 09:29 Dose: 100 mls/hr Documented by: Clindamycin Phosphate (Cleocin 600 Mg Premix Ivpb -) 600 mg in 50 mls @ 100 mls/hr IVPB Q8H-IV [facility]; Protocol Last Admin: 12/03/19 17:07 Dose: 100 mls/hr Documented by: Lisinopril (Prinivil) 20 mg PO HS [facility] Last Admin: 12/02/19 21:55 Dose: 20 mg Documented by: Methylprednisolone (Medrol -) 4 mg PO DAILY [facility] Last Admin: 12/03/19 09:29 Dose: 4 mg Documented by: - Objective Vital Signs: Vital Signs Temperature 98.8 F 12/03/19 14:37 Pulse Rate 76 12/03/19 14:37 Respiratory Rate 20 12/03/19 14:37 Blood Pressure 122/72 12/03/19 14:37 O2 Sat by Pulse Oximetry (%) 98 12/03/19 10:00 Constitutional: Yes: No Distress, Calm Eyes: Yes: Conjunctiva Clear, EOM Intact HENT: Yes: Atraumatic, Tonsillar Exudate (minimal, +enlarged tonsils) Neck: Yes: Supple Cardiovascular: Yes: Regular Rate and Rhythm Respiratory: Yes: CTA Bilaterally Gastrointestinal: Yes: Normal Bowel Sounds, Soft, Abdomen, Obese Genitourinary: Yes: WNL Extremities: Yes: WNL Neurological: Yes: Alert, Oriented Labs: CBC, BMP 12/03/19 07:40 12/03/19 07:40 Laboratory Last Values WBC 21.7 K/mm3 (4.0-10.0) H 12/03/19 07:40 RBC 4.92 M/mm3 (4.00-5.60) 12/03/19 07:40 Hgb 14.9 GM/dL (11.7-16.9) 12/03/19 07:40 Hct 44.9 % (35.4-49) 12/03/19 07:40 MCV 91.4 fl (80-96) 12/03/19 07:40 MCH 30.3 pg (25.7-33.7) 12/03/19 07:40 MCHC 33.1 g/dl (32.0-35.9) 12/03/19 07:40 RDW 14.3 % (11.9-15.9) 12/03/19 07:40 Plt Count 298 K/MM3 (134-434) 12/03/19 07:40 MPV 8.7 fl (7.5-11.1) 12/03/19 07:40 Absolute Neuts (auto) 18.3 K/mm3 (1.5-8.0) H 12/03/19 07:40 Total Counted 100 12/01/19 22:10 Neutrophils % 84.6 % (42.8-82.8) H 12/03/19 07:40 Neutrophils % (Manual) 88.0 % (42.8-82.8) H 12/03/19 07:40 Band Neutrophils % 0.0 % 12/03/19 07:40 Lymphocytes % 8.2 % (8-40) D 12/03/19 07:40 Lymphocytes % (Manual) 10.0 % (8-40) D 12/03/19 07:40 Monocytes % 7.2 % (3.8-10.2) 12/03/19 07:40 Monocytes % (Manual) 2 % (3.8-10.2) L 12/03/19 07:40 Eosinophils % 0.0 % (0-4.5) D 12/03/19 07:40 Eosinophils % (Manual) 0.0 % (0-4.5) 12/03/19 07:40 Basophils % 0.0 % (0-2.0) 12/03/19 07:40 Basophils % (Manual) 0.0 % (0-2.0) 12/03/19 07:40 Myelocytes % (Man) 0 % (0-2) 12/03/19 07:40 Promyelocytes % (Man) 0 % (0-2) 12/03/19 07:40 Blast Cells % (Manual) 0 % (0-0) 12/03/19 07:40 Nucleated RBC % 0 % (0-0) 12/03/19 07:40 Metamyelocytes 0 % (0-2) 12/03/19 07:40 Hypochromia 0 12/03/19 07:40 Platelet Estimate Normal 12/03/19 07:40 Platelet Comment No clumping noted 12/01/19 22:10 Polychromasia 0 12/03/19 07:40 Poikilocytosis 0 12/03/19 07:40 Anisocytosis 1+ 12/03/19 07:40 Microcytosis 1+ 12/03/19 07:40 Macrocytosis 0 12/03/19 07:40 Sodium 139 mmol/L (136-145) 12/03/19 07:40 Potassium 4.6 mmol/L (3.5-5.1) 12/03/19 07:40 Chloride 104 mmol/L (98-107) 12/03/19 07:40 Carbon Dioxide 28 mmol/L (21-32) 12/03/19 07:40 Anion Gap 7 MMOL/L (8-16) L 12/03/19 07:40 BUN 22.9 mg/dL (7-18) H 12/03/19 07:40 Creatinine 1.0 mg/dL (0.55-1.3) 12/03/19 07:40 Est GFR (CKD-EPI)AfAm 114.91 12/03/19 07:40 Est GFR (CKD-EPI)NonAf 99.15 12/03/19 07:40 Random Glucose 105 mg/dL (74-106) 12/03/19 07:40 Hemoglobin A1c % 6.1 % (4.2-6.3) 12/02/19 08:00 Calcium 9.2 mg/dL (8.5-10.1) 12/03/19 07:40 Phosphorus 2.1 mg/dL (2.5-4.9) L 12/02/19 08:00 Magnesium 2.0 mg/dL (1.8-2.4) 12/02/19 08:00 Total Bilirubin 0.4 mg/dL (0.2-1) 12/03/19 07:40 AST 16 U/L (15-37) 12/03/19 07:40 ALT 34 U/L (13-61) 12/03/19 07:40 Alkaline Phosphatase 114 U/L (45-117) 12/03/19 07:40 Creatine Kinase 182 U/L (26-308) 12/01/19 22:10 Creatine Kinase Index 1.1 % (0.0-5.0) 12/01/19 22:10 CK-MB (CK-2) 2.1 ng/mL (0.5-3.6) 12/01/19 22:10 Troponin I < 0.02 ng/ml (0.00-0.05) 12/01/19 22:10 Total Protein 7.3 g/dl (6.4-8.2) 12/03/19 07:40 Albumin 3.4 g/dl (3.4-5.0) 12/03/19 07:40 Triglycerides 94 mg/dL (0-150) 12/03/19 07:40 Cholesterol 177 mg/dL (50-200) 12/03/19 07:40 Total LDL Cholesterol 119 mg/dL (5-100) H 12/03/19 07:40 HDL Cholesterol 43 mg/dL (40-60) 12/03/19 07:40 TSH 0.37 uIU/ml (0.358-3.74) 12/02/19 08:00 Urine Color Yellow 12/02/19 04:50 Urine Appearance Cloudy 12/02/19 04:50 Urine pH 5.0 (5.0-8.0) 12/02/19 04:50 Ur Specific [place] 1.025 (1.010-1.035) 12/02/19 04:50 Urine Protein Negative (NEGATIVE) 12/02/19 04:50 Urine Glucose (UA) Negative (NEGATIVE) 12/02/19 04:50 Urine Ketones Trace (NEGATIVE) H 12/02/19 04:50 Urine Blood Negative (NEGATIVE) 12/02/19 04:50 Urine Nitrite Negative (NEGATIVE) 12/02/19 04:50 Urine Bilirubin Negative (NEGATIVE) 12/02/19 04:50 Urine Urobilinogen 0.2 mg/dL (0.2-1.0) 12/02/19 04:50 Ur Leukocyte Esterase Negative (NEGATIVE) 12/02/19 04:50 Urine WBC (Auto) 78 /uL (0-25.8) 12/02/19 00:05 Urine RBC (Auto) 12 /uL (0-23.9) 12/02/19 00:05 Urine Casts (Auto) 2 /uL (0-3.1) 12/02/19 00:05 U Epithel Cells (Auto) 36 /uL (0-25.1) 12/02/19 00:05 Urine Bacteria (Auto) 281 /uL (0-1359) 12/02/19 00:05 COVID-19 (ТАТЬЯНА) Not detected (Not Detected) 12/01/19 22:10 Influenza A (Rapid) Negative (Negative) 12/02/19 12:00 Influenza B (Rapid) Negative (Negative) 12/02/19 12:00 RSV Rapid Negative (Negative) 12/02/19 12:00 Group A Strep Rapid Negative (Negative) 12/01/19 17:30 Microbiology 12/01/19 18:06 Throat Throat Culture - Preliminary Pending Organism 12/02/19 04:50 Urine - Urine Clean Catch Urine Culture - Final NO GROWTH OBTAINED 12/02/19 04:20 Blood - Peripheral Venous Blood Culture - Preliminary NO GROWTH OBTAINED AFTER 24 HOURS, INCUBATION TO CONTINUE FOR 4 DAYS. 12/02/19 04:20 Blood - Peripheral Venous Blood Culture - Preliminary NO GROWTH OBTAINED AFTER 24 HOURS, INCUBATION TO CONTINUE FOR 4 DAYS. 12/02/19 12:00 Nasopharyngeal Swab Respiratory Virus Panel - Preliminary Problem List - Problems (1) Hypertensive urgency Code(s): I16.0 - HYPERTENSIVE URGENCY (2) Leukocytosis Code(s): D72.829 - ELEVATED WHITE BLOOD CELL COUNT, UNSPECIFIED (3) Fever Code(s): R50.9 - FEVER, UNSPECIFIED Assessment/Plan Fever Leukocytosis Tonsillitis Hypertensive urgency Obesity Rash - ? allergic reaction vs insect bites -- pt with sore throat/fever resolving, seen by ENT -- wbc significantly elevated but trending down -- rapid strep negative, blood cultures neg 24h -- f/u rest of serology results -- continue current antibiotics -- monitor wbc trend -- if wbc/temps remain elevated suggest CT head/ neck -- BP control , Nephrology following
[2019-12-03] MEDS: LISINOPRIL 20 MG TABLET (FP) PO SCH (22:46)
[2019-12-04] MEDS: CLINDAMYCIN 600MG PREMIX IVPB 600 MG/50 ML BAG IVPB SCH ×3 (01:32→18:00)
[2019-12-04] MEDS ORDERED: PT OWN MED DRAWER 7, Y5N ONE (09:35)
[2019-12-04] MEDS: amLODIPine BESYLATE 10 MG TABLET (FP) PO SCH (09:42)
[2019-12-04] MEDS: FAMOTIDINE 20 MG TABLET PO SCH (09:42)
[2019-12-04] MEDS: methylPREDNISolone 4 MG TABLET PO SCH (09:43)
[2019-12-04] MEDS: ENOXAPARIN NA (PORCINE) 40 MG/0.4 ML DISP.SYRIN SQ SCH (09:49)
[2019-12-04] MEDS ORDERED: SODIUM CHLORIDE 0.9% 500 ML INFUS.BAG IV ONE (10:25)
--- NOTE | 2019-12-04 11:05 | PN ---
Progress Note, Physician History of Present Illness: feels better throat still swollen afebrile now - Current Medication List Current Medications: Active Medications Amlodipine Besylate (Norvasc -) 10 mg PO DAILY [facility] Last Admin: 12/04/19 09:42 Dose: 10 mg Documented by: Benzocaine/Menthol (Cepacol Lozenge -) 1 each MM PRN PRN PRN Reason: SORE THROAT Enoxaparin Sodium (Lovenox -) 40 mg SQ DAILY [facility] Last Admin: 12/04/19 09:49 Dose: 40 mg Documented by: Famotidine (Pepcid -) 20 mg PO DAILY [facility] Last Admin: 12/04/19 09:42 Dose: 20 mg Documented by: Levofloxacin (Levaquin 500 Mg Premixed Ivpb -) 500 mg in 100 mls @ 100 mls/hr IVPB DAILY [facility]; Protocol Last Admin: 12/04/19 10:37 Dose: 100 mls/hr Documented by: Clindamycin Phosphate (Cleocin 600 Mg Premix Ivpb -) 600 mg in 50 mls @ 100 mls/hr IVPB Q8H-IV [facility]; Protocol Last Admin: 12/04/19 09:42 Dose: 100 mls/hr Documented by: Lisinopril (Prinivil) 20 mg PO HS [facility] Last Admin: 12/03/19 22:46 Dose: 20 mg Documented by: Methylprednisolone (Medrol -) 4 mg PO DAILY [facility] Last Admin: 12/04/19 09:43 Dose: 4 mg Documented by: - Objective Vital Signs: Vital Signs Temperature 98.8 F 12/04/19 09:51 Pulse Rate 75 12/04/19 09:51 Respiratory Rate 20 12/04/19 09:51 Blood Pressure 151/74 12/04/19 09:51 O2 Sat by Pulse Oximetry (%) 99 12/04/19 09:51 Constitutional: Yes: Calm, Mild Distress, Obese Eyes: Yes: Conjunctiva Clear HENT: Yes: Atraumatic, Normocephalic Neck: Yes: Supple, Trachea Midline Cardiovascular: Yes: Regular Rate and Rhythm Respiratory: Yes: Regular, CTA Bilaterally Gastrointestinal: Yes: Normal Bowel Sounds, Soft Musculoskeletal: Yes: WNL Extremities: Yes: WNL Neurological: Yes: Alert, Oriented Psychiatric: Yes: Alert, Oriented Labs: CBC, BMP 12/03/19 07:40 12/03/19 07:40 Assessment/Plan Problem List - Problems (1) Hypertensive urgency Code(s): I16.0 - HYPERTENSIVE URGENCY (2) Leukocytosis Code(s): D72.829 - ELEVATED WHITE BLOOD CELL COUNT, UNSPECIFIED (3) Fever Code(s): R50.9 - FEVER, UNSPECIFIED Assessment/Plan Fever Leukocytosis Tonsillitis Hypertensive urgency Obesity plan continue abx monitor wbc rest as per the team
[2019-12-04 12:03] LABS: BASO % 0.4 % (0-2.0); EOS % 0.7 % (0-4.5); HEMATOCRIT 43.9 % (35.4-49); HEMOGLOBIN 14.5 GM/dL (11.7-16.9); LYMPH % 31.6 % (8-40); MCH 30.1 pg (25.7-33.7); MEAN CELL VOLUME 91.1 fl (80-96); MEAN PLT VOLUME 8.4 fl (7.5-11.1); MONO % 12.2 % (3.8-10.2); NEUT % 55.1 % (42.8-82.8); PLATELET COUNT 296 K/MM3 (134-434); RBC 4.82 M/mm3 (4.00-5.60); RDW 14.3 % (11.9-15.9); WHITE BLOOD COUNT 10.7 K/mm3 (4.0-10.0)
[2019-12-04 12:26] LABS: ALBUMIN 3.3 g/dl (3.4-5.0); BILIRUBIN,TOTAL 0.6 mg/dL (0.2-1); BLOOD UREA NITROGEN 19.9 mg/dL (7-18); CALCIUM 8.6 mg/dL (8.5-10.1); CREATININE 0.7 mg/dL (0.55-1.3)
[2019-12-04] MEDS: HYDROCHLOROTHIAZIDE 25 MG TABLET (FP) PO SCH (13:01)
--- NOTE | 2019-12-04 14:32 | PN ---
Progress Note, Physician Chief Complaint: Throat pain History of Present Illness: Seen and examined at the bedside. Awake and alert, offers no acute complaints. Denies any BAUM, CP, shortness of breath, fever, chills or abdominal pain. Making urine. NO leg swelling. - Current Medication List Current Medications: Active Medications Amlodipine Besylate (Norvasc -) 10 mg PO DAILY [facility] Last Admin: 12/04/19 09:42 Dose: 10 mg Documented by: Benzocaine/Menthol (Cepacol Lozenge -) 1 each MM PRN PRN PRN Reason: SORE THROAT Enoxaparin Sodium (Lovenox -) 40 mg SQ DAILY [facility] Last Admin: 12/04/19 09:49 Dose: 40 mg Documented by: Famotidine (Pepcid -) 20 mg PO DAILY [facility] Last Admin: 12/04/19 09:42 Dose: 20 mg Documented by: Hydrochlorothiazide (Hctz -) 25 mg PO DAILY [facility] Last Admin: 12/04/19 13:01 Dose: 25 mg Documented by: Levofloxacin (Levaquin 500 Mg Premixed Ivpb -) 500 mg in 100 mls @ 100 mls/hr IVPB DAILY [facility]; Protocol Last Admin: 12/04/19 10:37 Dose: 100 mls/hr Documented by: Clindamycin Phosphate (Cleocin 600 Mg Premix Ivpb -) 600 mg in 50 mls @ 100 mls/hr IVPB Q8H-IV [facility]; Protocol Last Admin: 12/04/19 09:42 Dose: 100 mls/hr Documented by: Lisinopril (Prinivil) 20 mg PO HS [facility] Last Admin: 12/03/19 22:46 Dose: 20 mg Documented by: Methylprednisolone (Medrol -) 4 mg PO DAILY [facility] Last Admin: 12/04/19 09:43 Dose: 4 mg Documented by: - Objective Vital Signs: Vital Signs Temperature 98.8 F 12/04/19 09:55 Pulse Rate 75 12/04/19 09:55 Respiratory Rate 20 12/04/19 09:55 Blood Pressure 151/74 12/04/19 09:55 O2 Sat by Pulse Oximetry (%) 99 12/04/19 09:55 Constitutional: Yes: No Distress, Calm HENT: Yes: Atraumatic Neck: Yes: Supple Cardiovascular: Yes: Regular Rate and Rhythm Respiratory: Yes: Regular Gastrointestinal: Yes: Soft Extremities: No: Cyanosis Edema: No Neurological: Yes: Alert, Oriented Labs: CBC, BMP 12/04/19 11:18 12/04/19 11:18 Assessment/Plan 34-year-old male with a past medical history of obesity, asthma and hypertension presents with throat pain and found to have tonsillitis as well as hypertensive urgency. 1. Hypertensive urgency 2. Tonsillitis 3. Fever/leukocytosis 4. Obesity Blood pressure is moderate it as compared to admission values. We will add hydrochlorothiazide in addition to lisinopril and amlodipine. Goal blood pressure less than 130/80. Secondary hypertension workup including renin/aldosterone ratio pending. Would benefit from Doppler of renal arteries as an outpatient. Maintain low-sodium diet. Continue workup as per ID. Stable for discharge from renal/hypertension perspective once medically cleared. Thank you Ernie Varma DO
[2019-12-04] MEDS: LISINOPRIL 20 MG TABLET (FP) PO SCH (21:12)
--- NOTE | 2019-12-04 22:07 | PN ---
Physical Exam: SUBJECTIVE: Patient seen and examined. No acute complaints. OBJECTIVE: Vital Signs Period Temp Pulse Resp BP Sys/Streeter Pulse Ox Last 24 Hr 98.5 F-99.2 F 71-75 18-20 134-159/74-102 96-99 GENERAL: The patient is awake, alert, and fully oriented, in no acute distress. HEAD: Normal with no signs of trauma. EYES: Sclera anicteric, conjunctiva clear. ENT: Ears normal, nares patent, oropharynx clear without exudates, moist mucous membranes. NECK: Trachea midline, full range of motion, supple. LUNGS: Breath sounds equal, clear to auscultation bilaterally, no wheezes, no crackles, no accessory muscle use. HEART: Regular rate and rhythm, S1, S2 without murmur ABDOMEN: Soft, obese, nontender, nondistended, normoactive bowel sounds, no guarding, no rebound, no hepatosplenomegaly, no masses. EXTREMITIES: 2+ dorsal pedal pulses, warm, no calf tenderness, well-perfused, no edema. NEUROLOGICAL: Moves all extremities. Normal speech, gait not observed. PSYCH: Normal mood, normal affect. SKIN: Warm, dry, normal turgor, no rashes or lesions noted Laboratory Results - last 24 hr 12/04/19 12/04/19 11:18 11:18 WBC 10.7 H RBC 4.82 Hgb 14.5 Hct 43.9 MCV 91.1 MCH 30.1 MCHC 33.0 RDW 14.3 Plt Count 296 MPV 8.4 Absolute Neuts (auto) 5.9 Neutrophils % 55.1 D Lymphocytes % 31.6 D Monocytes % 12.2 H Eosinophils % 0.7 D Basophils % 0.4 D Nucleated RBC % 0 Sodium 141 Potassium 4.0 Chloride 108 H Carbon Dioxide 28 Anion Gap 5 L BUN 19.9 H Creatinine 0.7 Est GFR (CKD-EPI)AfAm 144.72 Est GFR (CKD-EPI)NonAf 124.87 Random Glucose 76 Calcium 8.6 Total Bilirubin 0.6 AST 14 L ALT 32 Alkaline Phosphatase 105 Total Protein 7.0 Albumin 3.3 L Active Medications Generic Name Dose Route Start Last Admin Trade Name Freq PRN Reason Stop Dose Admin Amlodipine Besylate 10 mg 12/03/19 10:00 12/04/19 09:42 Norvasc - PO 10 mg DAILY [facility] Administration Benzocaine/Menthol 1 each 12/02/19 03:59 Cepacol Lozenge - MM PRN PRN SORE THROAT Enoxaparin Sodium 40 mg 12/02/19 10:00 12/04/19 09:49 Lovenox - SQ 40 mg DAILY [facility] Administration Famotidine 20 mg 12/02/19 11:30 12/04/19 09:42 Pepcid - PO 20 mg DAILY [facility] Administration Hydrochlorothiazide 25 mg 12/04/19 12:45 12/04/19 13:01 Hctz - PO 25 mg DAILY [facility] Administration Levofloxacin 500 mg in 100 mls @ 100 mls/hr 12/02/19 18:45 12/04/19 10:37 Levaquin 500 Mg Premixed Ivpb - IVPB 100 mls/hr DAILY [facility] Administration Protocol Clindamycin Phosphate 600 mg in 50 mls @ 100 mls/hr 12/02/19 18:00 12/04/19 18:00 Cleocin 600 Mg Premix Ivpb - IVPB 100 mls/hr Q8H-IV [facility] Administration Protocol Lisinopril 20 mg 12/02/19 10:00 12/04/19 21:12 Prinivil PO 20 mg HS [facility] Administration Methylprednisolone 4 mg 12/02/19 11:45 12/04/19 09:43 Medrol - PO 4 mg DAILY [facility] Administration ASSESSMENT/PLAN: Pt. is a 34 y.o. M w/ PMHx. of HTN presenting for a sore throat, admitted for hypertensive urgency. #Hypertensive urgency -s/p 100mg losartan PO in ED -BP most recently 150s/90s-100s - c/w Lisinopril 20mg, Norvasc 10mg and start HCTZ 25mg -Nephro Dr. Varma consulted to r/o secondary causes of HTN---> outpatient renal artery US #Sepsis 2/2 URI? Tonsillitis -c/w levaquin and clindamycin; avoid PCN products 2/2 allergy -f/u urine culture & sensitivities, cultures; Throat Cx. growing few Group C Strep, RSV, BCX and UCx. NTD, f/u EBV -monitor wbc -tylenol prn for fever -ID consulted- Dr. Dobbs---> will convert to PO in AM #Throat pain -c/o throat pain. Oropharynx is clear. + clear fluid noted at entrance of R tympanic membrane on otoscope exam -ENT consulted, Dr. Vincent--> no acute intervention for ear or sore throat - c/w Medrol 4 mg , will DC in AM #Obesity -counselled on importance of healthy diet and exercise -Hba1c: 6.1, lipid panel: LDL- 119 #FEN -no standing fluids -trend & replete lytes -Na & fat controlled diet #DVT PPX: lovenox 40mg sq daily #Dispo admit to med surg social work consulted, patient has no insurance Visit type - Emergency Visit Emergency Visit: Yes ED Registration Date: 12/01/19 Care time: The patient presented to the Emergency Department on the above date and was hospitalized for further evaluation of their emergent condition. - New Patient This patient is new to me today: Yes Date on this admission: 12/05/19 - Critical Care Critical Care patient: No - Discharge Referral Referred to [facility] Med [facility].C[facility] No ATTENDING PHYSICIAN STATEMENT I saw and evaluated the patient. I reviewed the resident's note and discussed the case with the resident. I agree with the resident's findings and plan as documented. SUBJECTIVE: OBJECTIVE: ASSESSMENT AND PLAN:
[2019-12-05] MEDS: CLINDAMYCIN 600MG PREMIX IVPB 600 MG/50 ML BAG IVPB SCH ×2 (02:07→09:57)
[2019-12-05 08:00] LABS: HEMATOCRIT 44.3 % (35.4-49); HEMOGLOBIN 14.6 GM/dL (11.7-16.9); MCH 30.1 pg (25.7-33.7); MEAN PLT VOLUME 8.1 fl (7.5-11.1); PLATELET COUNT 290 K/MM3 (134-434); RBC 4.87 M/mm3 (4.00-5.60); WHITE BLOOD COUNT 11.3 K/mm3 (4.0-10.0)
[2019-12-05 08:16] LABS: BLOOD UREA NITROGEN 18.6 mg/dL (7-18); CALCIUM 8.7 mg/dL (8.5-10.1); CREATININE 0.9 mg/dL (0.55-1.3); MAGNESIUM 2.1 mg/dL (1.8-2.4); POTASSIUM 4.3 mmol/L (3.5-5.1)
[2019-12-05] MEDS ORDERED: PT OWN MED DRAWER 7, Y5N ONE (09:54)
[2019-12-05] MEDS: ENOXAPARIN NA (PORCINE) 40 MG/0.4 ML DISP.SYRIN SQ SCH (09:56)
[2019-12-05] MEDS: HYDROCHLOROTHIAZIDE 25 MG TABLET (FP) PO SCH (09:57)
[2019-12-05] MEDS: FAMOTIDINE 20 MG TABLET PO SCH (09:57)
[2019-12-05] MEDS: amLODIPine BESYLATE 10 MG TABLET (FP) PO SCH (09:57)
[2019-12-05] MEDS: methylPREDNISolone 4 MG TABLET PO SCH (09:57)
[2019-12-05 11:23] VITALS: PULSE 77
--- NOTE | 2019-12-05 12:19 | PN ---
Progress Note, Physician History of Present Illness: stable no new issues eating well - Current Medication List Current Medications: Active Medications Amlodipine Besylate (Norvasc -) 10 mg PO DAILY [facility] Last Admin: 12/05/19 09:57 Dose: 10 mg Documented by: Benzocaine/Menthol (Cepacol Lozenge -) 1 each MM PRN PRN PRN Reason: SORE THROAT Enoxaparin Sodium (Lovenox -) 40 mg SQ DAILY [facility] Last Admin: 12/05/19 09:56 Dose: 40 mg Documented by: Famotidine (Pepcid -) 20 mg PO DAILY [facility] Last Admin: 12/05/19 09:57 Dose: 20 mg Documented by: Hydrochlorothiazide (Hctz -) 25 mg PO DAILY [facility] Last Admin: 12/05/19 09:57 Dose: 25 mg Documented by: Levofloxacin (Levaquin 500 Mg Premixed Ivpb -) 500 mg in 100 mls @ 100 mls/hr IVPB DAILY [facility]; Protocol Last Admin: 12/05/19 10:31 Dose: 100 mls/hr Documented by: Clindamycin Phosphate (Cleocin 600 Mg Premix Ivpb -) 600 mg in 50 mls @ 100 mls/hr IVPB Q8H-IV [facility]; Protocol Last Admin: 12/05/19 09:57 Dose: 100 mls/hr Documented by: Lisinopril (Prinivil) 20 mg PO HS [facility] Last Admin: 12/04/19 21:12 Dose: 20 mg Documented by: Methylprednisolone (Medrol -) 4 mg PO DAILY [facility] Last Admin: 12/05/19 09:57 Dose: 4 mg Documented by: - Objective Vital Signs: Vital Signs Temperature 99.0 F 12/05/19 10:00 Pulse Rate 77 12/05/19 10:00 Respiratory Rate 20 12/05/19 10:00 Blood Pressure 151/94 12/05/19 10:00 O2 Sat by Pulse Oximetry (%) 97 12/05/19 10:00 Constitutional: Yes: No Distress, Calm Cardiovascular: Yes: S1, S2 Respiratory: Yes: Regular, CTA Bilaterally Gastrointestinal: Yes: Normal Bowel Sounds, Soft Musculoskeletal: Yes: WNL Extremities: Yes: WNL Neurological: Yes: Alert, Oriented Psychiatric: Yes: Alert, Oriented Labs: CBC, BMP 12/05/19 06:57 12/05/19 06:57 Assessment/Plan Problem List - Problems (1) Hypertensive urgency Code(s): I16.0 - HYPERTENSIVE URGENCY (2) Leukocytosis Code(s): D72.829 - ELEVATED WHITE BLOOD CELL COUNT, UNSPECIFIED (3) Fever Code(s): R50.9 - FEVER, UNSPECIFIED Assessment/Plan Fever Leukocytosis Tonsillitis Hypertensive urgency Obesity plan continue abx can switch to oral
--- NOTE | 2019-12-05 14:25 | PN ---
Teaching Attending Note Name of Resident: Clark Temple ATTENDING PHYSICIAN STATEMENT I saw and evaluated the patient. I reviewed the resident's note and discussed the case with the resident. I agree with the resident's findings and plan as documented. SUBJECTIVE: Seen and examined at bedside. Patient with no acute complaints. Hemodynamical ly stable and afebrile. Medically cleared for discharge. Will be sent home on p.o. antibiotics and hydrochlorothiazide in addition to his home antihypertensives. Patient has no insurance and requires follow-up for evaluation of secondary hypertension and possible sleep apnea. Patient will be eligible to apply for insurance in January. Will give 3 months of medications to cover for this period. OBJECTIVE Last Vital Signs Temp Pulse Resp BP Pulse Ox 99.0 F 77 20 151/94 97 12/05/19 10:12/05/19 10:12/05/19 10:00 12/05/19 10:12/05/19 10:00 PE: Per resident note Labs/Imaging: reviewed ASSESSMENT/PLAN 34-year-old male past medical history of hypertension, obesity who presents with sore throat. Admitted for tonsillitis and hypertensive urgency. Patient was treated with Levaquin and clindamycin with improvement. Throat culture positive for group C strep. Will be discharged on oral antibiotics. Hypertension is concerning for secondary hypertension. Renin aldosterone level sent and pending. Cortisol level unremarkable. Also concern for possible sleep apnea. Patient needs to follow-up with pulmonary and nephrology as an outpatient for further work-up. He does not have insurance so will not be able to get appointments for at least 1 to 2 months. Will be sent home with 3 months of hypertensive medications and instructed to follow-up.
[2019-12-05 14:29] VITALS: BP 148/96; TEMP 99.1
--- NOTE | 2019-12-05 15:11 | PN ---
Teaching Attending Note Name of Resident: Clark Temple ATTENDING PHYSICIAN STATEMENT I saw and evaluated the patient. I reviewed the resident's note and discussed the case with the resident. I agree with the resident's findings and plan as documented. SUBJECTIVE: Patient seen and examined at bedside, endorses throat pain basically resolved, feeling much better, denies complaints, WBC count trending down, VSS. OBJECTIVE: Vital Signs Period Temp Pulse Resp BP Sys/Streeter Pulse Ox Last 24 Hr 97.8 F-101.8 F 6-117 16-18 116-198/68-126 95-107 GENERAL: The patient is awake, alert, and fully oriented, in no acute distress. HEENT NC/AT, EOMI, no neck pain to palpation, neck supple, posterior oropharynx erythematous without any visible abscesses, Grade 4 enlargement of tonsils without visible plaques/abscesses, acanthosis negricans present on neck LUNGS: CTAB, no crackles or wheezing HEART: Regular rate and rhythm, S1, S2 without murmur, rub or gallop. ABDOMEN: morbidly obese, SOft, NT, BS+ EXTREMITIES: 2+ pulses, warm, well-perfused, no edema. NEUROLOGICAL: Cranial nerves II through XII grossly intact. Normal speech, gait not observed. PSYCH: Normal mood, normal affect. SKIN: Warm, dry, normal turgor, no rashes or lesions noted Vital Signs (72 hours) 12/02/19 12/02/19 12/02/19 18:00 21:00 22:00 Temperature 98 F 98.6 F Pulse Rate 81 84 Respiratory 20 20 20 Rate Blood Pressure 148/89 152/102 H O2 Sat by Pulse 97 98 98 Oximetry (%) 12/03/19 12/03/19 12/03/19 02:00 05:58 09:00 Temperature 98.5 F 97.4 F L Pulse Rate 63 Respiratory 20 Rate Blood Pressure 122/65 O2 Sat by Pulse 98 98 Oximetry (%) 12/03/19 12/03/19 12/03/19 10:00 14:37 21:00 Temperature 97.8 F 98.8 F Pulse Rate 80 76 Respiratory 20 20 Rate Blood Pressure 149/99 122/72 O2 Sat by Pulse 98 98 Oximetry (%) 12/03/19 12/04/19 12/04/19 22:55 05:57 09:00 Temperature 99.0 F 98.5 F Pulse Rate 74 71 Respiratory 20 20 Rate Blood Pressure 159/102 H 152/92 O2 Sat by Pulse 98 96 99 Oximetry (%) 12/04/19 12/04/19 12/04/19 09:55 15:01 21:00 Temperature 98.8 F 99.2 F Pulse Rate 75 75 Respiratory 20 18 18 Rate Blood Pressure 151/74 134/88 O2 Sat by Pulse 99 97 97 Oximetry (%) 12/04/19 12/05/19 12/05/19 22:00 06:00 09:00 Temperature 98.7 F 97.6 F Pulse Rate 71 71 Respiratory 18 18 Rate Blood Pressure 153/99 138/93 O2 Sat by Pulse 96 98 97 Oximetry (%) 12/05/19 12/05/19 10:00 14:27 Temperature 99.0 F 99.1 F Pulse Rate 77 77 Respiratory 20 20 Rate Blood Pressure 151/94 148/96 O2 Sat by Pulse 97 95 Oximetry (%) Microbiology 12/02/19 04:20 Blood - Peripheral Venous Blood Culture - Preliminary NO GROWTH OBTAINED AFTER 72 HOURS, INCUBATION TO CONTINUE FOR 2 DAYS. 12/02/19 04:20 Blood - Peripheral Venous Blood Culture - Preliminary NO GROWTH OBTAINED AFTER 72 HOURS, INCUBATION TO CONTINUE FOR 2 DAYS. 12/01/19 18:06 Throat Throat Culture - Final Beta Hem Streptococcus Group C 12/02/19 04:50 Urine - Urine Clean Catch Urine Culture - Final NO GROWTH OBTAINED 12/02/19 12:00 Nasopharyngeal Swab Respiratory Virus Panel - Preliminary Laboratory Results - last 24 hr 12/03/19 12/03/19 12/05/19 07:40 12:35 06:57 WBC 11.3 H RBC 4.87 Hgb 14.6 Hct 44.3 MCV 91.0 MCH 30.1 MCHC 33.0 RDW 14.0 Plt Count 290 MPV 8.1 Sodium Potassium Chloride Carbon Dioxide Anion Gap BUN Creatinine Est GFR (CKD-EPI)AfAm Est GFR (CKD-EPI)NonAf Random Glucose Calcium Magnesium Cortisol AM Sample 0.6 L CMV IgM Ab < 30.0 12/05/19 06:57 WBC RBC Hgb Hct MCV MCH MCHC RDW Plt Count MPV Sodium 140 Potassium 4.3 Chloride 102 Carbon Dioxide 33 H Anion Gap 5 L BUN 18.6 H Creatinine 0.9 Est GFR (CKD-EPI)AfAm 130.52 Est GFR (CKD-EPI)NonAf 112.62 Random Glucose 85 Calcium 8.7 Magnesium 2.1 Cortisol AM Sample CMV IgM Ab Home Medications Medication Instructions Recorded Amlodipine Besylate 10 mg PO HS #90 tablet 12/05/19 Clindamycin [Cleocin -] 600 mg PO Q8H #5 capsule 12/05/19 Hydrochlorothiazide [Hctz -] 25 mg PO DAILY #90 tablet 12/05/19 Levofloxacin [Levaquin] 500 mg PO DAILY #1 tablet 12/05/19 Lisinopril 20 mg PO DAILY #90 tablet 12/05/19 ASSESSMENT AND PLAN: 34 M HTN urgency Tonsillitis (likely viral in origin) Pre-T2DM Morbid obesity Moderate MERLE (26 AHI on sleep screen) Plan: Cont. Levaquin (PO), follow cultures Cont. Medrol for tonsilar inflammation Cont. H2 evelio Cont. Cepacol for symptomatic relief, ENT follow up as OP Sleep screening shows AH of 26 indicating moderate MERLE (5-15 mild,15-30 moderate, >30 severe MERLE), needs Pulmonary evaluation or OP follow up SW referral for health insurance DVT ppx: Ambulation/Lovenox
[2019-12-06 12:07] LABS: RENIN ACTIVITY(PRA) 3.489 ng/mL/hr (0.167-5.380)
[2019-12-06 14:05] LABS: EPSTEIN BARR ANTIBODY IgM <36.0
--- NOTE | 2019-12-10 17:25 | DS ---
Physical Exam: SUBJECTIVE: Patient seen and examined. No acute events overnight. OBJECTIVE: PHYSICAL EXAM GENERAL: The patient is awake, alert, and fully oriented, in no acute distress. HEAD: Normal with no signs of trauma. EYES: Sclera anicteric, conjunctiva clear. ENT: Ears normal, nares patent, oropharynx clear without exudates, moist mucous membranes. NECK: Trachea midline, full range of motion, supple. LUNGS: Breath sounds equal, clear to auscultation bilaterally, no wheezes, no crackles, no accessory muscle use. HEART: Regular rate and rhythm, S1, S2 without murmur ABDOMEN: Soft, obese, nontender, nondistended, normoactive bowel sounds, no guarding, no rebound, no hepatosplenomegaly, no masses. EXTREMITIES: 2+ dorsal pedal pulses, warm, no calf tenderness, well-perfused, no edema. NEUROLOGICAL: Moves all extremities. Normal speech, gait not observed. PSYCH: Normal mood, normal affect. SKIN: Warm, dry, normal turgor, no rashes or lesions noted LABS HOSPITAL COURSE: Date of Admission:12/01/19 Date of Discharge: 12/05/19 Pt. is a 34-y.o. M admitted for tonsillitis and hypertensive urgency. Patient was treated with Levaquin and clindamycin with improvement. Throat culture positive for group C strep. Will be discharged on oral antibiotics. Hyperten mary is concerning for secondary hypertension. Renin aldosterone level sent and pending. Cortisol level unremarkable. Also concern for possible sleep apnea. Patient needs to follow-up with pulmonary and nephrology as an outpatient for further work-up. He does not have insurance so will not be able to get appointments for at least 1 to 2 months. Will be sent home with 3 months of hypertensive medications and instructed to follow-up. Hospital follow up and medication adjustments as detailed below. Minutes to complete discharge: 25 Discharge Summary Problems reviewed: Yes Reason For Visit: HYPERTENSIVE URGENCY Condition: Stable - Instructions Diet, Activity, Other Instructions: You came in for a sore throat and ear pain. While you were here we noticed that your blood pressure was very high. We started you on antibiotics and steroids for your sore throat and sent tests to evaluate for the cause of your high blood pressure. One of the cultures from your throat showed Strep infection. You were seen in the hospital by an ID specialist, Inspector Casing and and Ear, Nose and Throat specialist. We have made some adjustments to your medications. Please STOP taking Losartan Please START taking HCTZ 25mg ONCE a Day Please START Amlodipine (Norvasc) 10mg ONCE a Night Please START Lisinopril 20mg ONCE a Day Please START Levaqiun 500mg ONCE a day for 1 more day STARTING 12/06/2019 Please START Clindamycin 600mg EVERY 8 hours for 5 more doses STARTING at 6PM TONIGHT Please follow up with your PCP within 1 week. We have provided [facility] if you do not have a PCP. Please discuss having a sleep apnea test at this time as this could be a cause of your high blood pressure. Please follow up with your Inspector Casing within 1 week to further evaluate why your have hypertension. You should get an ultra sound of your abdomen. Please follow up with your Charter [employer] within 1 week. This is to do a sleep study and outpatient lung testing. Please return to the ED if you are having fever, chills, chest pain, worsening shortness of breath or any other concerning symptoms. Referrals: [facility] [place] [Provider Group] - 1 Week Jase Dixon MD [Staff Physician] - 1 Week ON STAFF,NOT [Non Staff, Medical] - 1 Week Ernie Varma MD [Staff Physician] - 1 Week Disposition: HOME - Home Medications Comprehensive Discharge Medication List: Ambulatory Orders Amlodipine Besylate 10 mg PO HS #90 tablet 12/05/19 Clindamycin [Cleocin -] 600 mg PO Q8H #5 capsule 12/05/19 Hydrochlorothiazide [Hctz -] 25 mg PO DAILY #90 tablet 12/05/19 Levofloxacin [Levaquin] 500 mg PO DAILY #1 tablet 12/05/19 Lisinopril 20 mg PO DAILY #90 tablet 12/05/19 This patient is new to me today: No Emergency Visit: Yes ED Registration Date: 12/01/19 Care time: The patient presented to the Emergency Department on the above date and was hospitalized for further evaluation of their emergent condition. Critical Care patient: No - Discharge Referral Referred to [facility] No ATTENDING PHYSICIAN STATEMENT I saw and evaluated the patient. I reviewed the resident's note and discussed the case with the resident. I agree with the resident's findings and plan as documented. SUBJECTIVE: OBJECTIVE: ASSESSMENT AND PLAN:
== END 2019-12-05 14:41 | disposition home or self-care (01) | DRG 199 ==
LOC: JER 17:04 → JERBED 22:49 → J6S 12-02 04:50
PROVIDERS: ADMIT Internal Medicine; ATTEND Internal Medicine
DX: I16.0 Hypertensive urgency (principal); J03.00 Acute streptococcal tonsillitis, unspecified; N39.0 Urinary tract infection, site not specified; E66.01 Morbid (severe) obesity due to excess calories; Z68.41 Body mass index [BMI] 40.0-44.9, adult; I10 Essential (primary) hypertension; D72.829 Elevated white blood cell count, unspecified; R50.9 Fever, unspecified; G47.33 Obstructive sleep apnea (adult) (pediatric); R21 Rash and other nonspecific skin eruption; A41.9 Sepsis, unspecified organism; I15.9 Secondary hypertension, unspecified; R00.0 Tachycardia, unspecified
CPT/HCPCS: 36415; 71046-TC-FY; 80048; 80053; 80061; 81003; 82088; 82533; 82550; 82553; 83036; 83721; 83735; 84100; 84244; 84443; 84484; 85025; 85027; 86645; 86664; 86665; 87040; 87070; 87077; 87086; 87254; 87804; 87807; 87880; 93005; 93010; 99285-25; U0003

== ENCOUNTER 2020-07-28 11:26 | Emergency (ER) | payer BC ==
[2020-07-28 11:35] VITALS: TEMP 98; BMI 42.5
[2020-07-28 12:49] LABS: URINE APPEARANCE CLEAR; URINE BILIRUBIN NEGATIVE (NEGATIVE); URINE COLOR YELLOW; URINE GLUCOSE (UA) NEGATIVE (NEGATIVE); URINE KETONE NEGATIVE (NEGATIVE); URINE LEUK ESTERASE NEGATIVE (NEGATIVE); URINE NITRITE NEGATIVE (NEGATIVE); URINE PROTEIN NEGATIVE (NEGATIVE); URINE UROBILINOGEN 0.2 mg/dL (0.2-1.0)
[2020-07-28 12:55] LABS: BASO % 0.6 % (0-2.0); EOS % 1.4 % (0-4.5); HEMATOCRIT 42.7 % (35.4-49); HEMOGLOBIN 14.5 GM/dL (11.7-16.9); MCH 30.7 pg (25.7-33.7); MEAN CELL VOLUME 90.1 fl (80-96); MEAN PLT VOLUME 8.4 fl (7.5-11.1); MONO % 10.1 % (3.8-10.2); NEUT % 62.9 % (42.8-82.8); PLATELET COUNT 248 K/MM3 (134-434); RBC 4.74 M/mm3 (4.00-5.60); RDW 13.7 % (11.9-15.9); WHITE BLOOD COUNT 8.9 K/mm3 (4.0-10.0)
[2020-07-28 13:13] LABS: CHLORIDE 108 mmol/L (98-107); SODIUM 142 mmol/L (136-145)
[2020-07-28 13:15] LABS: CALCIUM 9.1 mg/dL (8.5-10.1)
[2020-07-28 13:16] LABS: ALBUMIN 3.6 g/dl (3.4-5.0); ANION GAP 5 MMOL/L (8-16); CO2 30 mmol/L (21-32); GLUCOSE,RANDOM 107 mg/dL (74-106)
[2020-07-28 13:19] LABS: CREATININE 0.8 mg/dL (0.55-1.3); SGOT/AST 28 U/L (15-37); SGPT/ALT 58 U/L (13-61)
[2020-07-28 13:21] LABS: BILIRUBIN,TOTAL 0.4 mg/dL (0.2-1); TOT PROT 7.3 g/dl (6.4-8.2)
[2020-07-28 13:22] LABS: ALK PHOS 118 U/L (45-117)
[2020-07-28 14:23] VITALS: BP 168/80; PULSE 80
== END 2020-07-28 14:22 ==
LOC: JER 11:26
DX: I16.0 Hypertensive urgency (principal)
CPT/HCPCS: 36415; 70450-TC; 80053; 81003; 82550; 82553; 82962; 84484; 85025; 93005; 93010; 99285-25

== ENCOUNTER 2020-09-16 14:18 | Emergency (ER) | payer BC ==
[2020-09-16 14:35] VITALS: BP 134/84; PULSE 105; TEMP 100.3; BMI 41.5
== END 2020-09-16 15:48 | disposition home or self-care (01) ==
LOC: JER 14:18
DX: J03.90 Acute tonsillitis, unspecified (principal); J02.9 Acute pharyngitis, unspecified; Z11.52 Encounter for screening for COVID-19
CPT/HCPCS: 87880; 99283-25; C9803; U0003; U0005

== ENCOUNTER 2020-11-03 17:46 | Emergency (ER) | payer BC ==
[2020-11-03 18:06] VITALS: TEMP 99.3; BMI 40.1
[2020-11-03 18:49] LABS: EPITHELIAL CELLS RARE /hpf
[2020-11-03 19:03] VITALS: BP 174/108; PULSE 81
== END 2020-11-03 19:04 | disposition home or self-care (01) ==
LOC: FER 17:46
DX: R82.2 Biliuria (principal)
CPT/HCPCS: 81003; 81015; 87086; 99283-25

== ENCOUNTER 2021-10-19 01:29 | Emergency (ER) | payer BC ==
[2021-10-19] MEDS ORDERED: ACETAMINOPHEN 500 MG TABLET (FP) PO ONE (01:38)
[2021-10-19] MEDS ORDERED: AZITHROMYCIN 500 MG TABLET PO ONE (01:38)
[2021-10-19] MEDS ORDERED: amLODIPine BESYLATE 5 MG TABLET (FP) PO ONE (01:39)
[2021-10-19] MEDS ORDERED: HYDROCHLOROTHIAZIDE 25 MG TABLET (FP) PO ONE (01:40)
[2021-10-19 01:41] VITALS: BP 158/105; PULSE 102; TEMP 100.6; BMI 40.1
[2021-10-19] MEDS ORDERED: HYDROCHLOROTHIAZIDE 25 MG TABLET (FP) ONE (01:46)
[2021-10-19] MEDS ORDERED: AZITHROMYCIN 250 MG TABLET ONE ×2 (01:46→01:47)
[2021-10-19] MEDS ORDERED: ACETAMINOPHEN 500 MG TABLET (FP) ONE (01:46)
[2021-10-19] MEDS ORDERED: amLODIPine BESYLATE 5 MG TABLET (FP) ONE (01:46)
== END 2021-10-19 01:57 | disposition home or self-care (01) ==
LOC: FER 01:29
DX: J18.9 Pneumonia, unspecified organism (principal); J40 Bronchitis, not specified as acute or chronic
CPT/HCPCS: 87070; 93005; 99284-25

== ENCOUNTER 2023-04-05 13:08 | Inpatient (IN) | payer BC ==
[2023-04-05] MEDS ORDERED: ONDANSETRON *ODT* 4 MG TABLET SL ONE ×2 (13:27→16:16)
[2023-04-05] MEDS ORDERED: ONDANSETRON *ODT* 4 MG TABLET ONE ×2 (13:41→16:35)
[2023-04-05] MEDS ORDERED: MAG HYDROX/AL HYDROX/SIMETH 30 ML UNIT-DOSE CUP PO ONE (13:55)
[2023-04-05] MEDS ORDERED: MAG HYDROX/AL HYDROX/SIMETH 30 ML UNIT-DOSE CUP ONE (14:46)
[2023-04-05 16:11] LABS: HEMATOCRIT 46.1 % (35.4-49); HEMOGLOBIN 15.7 G/dL (11.7-16.9); MCH 31.8 pg (25.7-33.7); MCHC 34.1 g/dl (32.0-35.9); MEAN CELL VOLUME 93.4 fl (80-96); PLATELET COUNT 214.9 10^3/uL (134-434); RBC 4.94 10^6/uL (4.00-5.60); WHITE BLOOD COUNT 8.3 10^3/uL (4.0-10.8)
[2023-04-05] MEDS ORDERED: FAMOTIDINE 20 MG TABLET PO ONE (16:16)
[2023-04-05 16:17] LABS: ALBUMIN 4.2 g/dl (3.4-5.0); CALCIUM 8.6 mg/dl (8.5-10.1); CREATININE 0.9 mg/dl (0.6-1.3); POTASSIUM 3.9 mmol/L (3.5-5.1); TOT PROT 7.1 g/dl (6.4-8.2)
[2023-04-05] MEDS ORDERED: ACETAMINOPHEN 325 MG TABLET (FP) PO ONE (16:17)
[2023-04-05] MEDS ORDERED: ACETAMINOPHEN 500 MG TABLET (FP) ONE (16:35)
[2023-04-05] MEDS ORDERED: FAMOTIDINE 20 MG TABLET ONE (16:35)
[2023-04-05 16:59] LABS: PLATELET ESTIMATE ADEQUATE
[2023-04-05] MEDS ORDERED: LACTATED RINGERS SOLUTION 1,000 ML IV STA (17:47)
[2023-04-05 21:36] VITALS: BMI 37.3
[2023-04-05] MEDS ORDERED: amLODIPine BESYLATE 5 MG TABLET (FP) PO ONE (22:07)
[2023-04-05] MEDS ORDERED: LISINOPRIL 20 MG TABLET PO ONE (22:07)
[2023-04-05] MEDS ORDERED: ONDANSETRON 4 MG/2 ML VIAL IVPUSH PRN (22:13)
[2023-04-05] MEDS ORDERED: LACTATED RINGERS SOLUTION 1,000 ML IV SCH (22:15)
[2023-04-06] MEDS ORDERED: ACETAMINOPHEN 1000 MG/100 ML BAG IVPB PRN (07:33)
[2023-04-06 09:04] LABS: BASO % 0.3 % (0-2.0); EOS % 1.4 % (0-4.5); HEMATOCRIT 42.7 % (35.4-49); HEMOGLOBIN 14.3 GM/dL (11.7-16.9); LYMPH % 26.3 % (8-40); MCH 31.1 pg (25.7-33.7); MCHC 33.6 g/dl (32.0-35.9); MEAN CELL VOLUME 92.6 fl (80-96); MEAN PLT VOLUME 8.1 fl (7.5-11.1); MONO % 15.9 % (3.8-10.2); NEUT % 56.1 % (42.8-82.8); PLATELET COUNT 210 10^3/uL (134-434); RBC 4.61 M/mm3 (4.00-5.60); RDW 13.4 % (11.9-15.9); WHITE BLOOD COUNT 4.9 K/mm3 (4.0-10.0)
[2023-04-06 09:56] VITALS: RESP 18
[2023-04-06 09:56] LABS: CALCIUM 8.1 mg/dl (8.5-10.1); CREATININE 0.8 mg/dl (0.6-1.3); POTASSIUM 3.9 mmol/L (3.5-5.1)
[2023-04-06] MEDS ORDERED: amLODIPine BESYLATE 5 MG TABLET (FP) PO SCH (10:00)
[2023-04-06] MEDS ORDERED: FAMOTIDINE 20 MG/50 ML IVPB 20 MG/50 ML MG IVPB SCH (10:00)
[2023-04-06] MEDS ORDERED: ENOXAPARIN NA (PORCINE) 40 MG/0.4 ML DISP.SYRIN SQ SCH (10:00)
[2023-04-06] MEDS ORDERED: LISINOPRIL 20 MG TABLET PO SCH (10:00)
[2023-04-06 14:59] VITALS: BP 153/86; PULSE 67; TEMP 99.1
== END 2023-04-06 19:28 | disposition home or self-care (01) | DRG 440 ==
LOC: FER 13:08 → FM/S 18:13
PROVIDERS: ADMIT Internal Medicine; ATTEND Family Medicine
DX: K85.80 Other acute pancreatitis without necrosis or infection (principal); R11.2 Nausea with vomiting, unspecified; E66.9 Obesity, unspecified; Z68.37 Body mass index [BMI] 37.0-37.9, adult; J45.909 Unspecified asthma, uncomplicated
CPT/HCPCS: 0241U-QW; 36415; 80048; 80053; 83690; 85025; 85027; 99285-25; Q0162

== ENCOUNTER 2023-08-21 20:53 | Emergency (ER) | payer BC ==
[2023-08-21 21:07] VITALS: BP 159/77; PULSE 98; RESP 18; TEMP 99; BMI 37.3
[2023-08-21] MEDS ORDERED: ACETAMINOPHEN 500 MG TABLET (FP) ONE (21:09)
[2023-08-21] MEDS ORDERED: DEXAMETHASONE 4 MG TABLET (FP) ONE (21:10)
[2023-08-21] MEDS ORDERED: KETOROLAC TROMETHAMINE 30 MG/1 ML VIAL ONE (21:10)
[2023-08-21] MEDS: KETOROLAC TROMETHAMINE 30 MG/1 ML VIAL IM ONE (21:22)
[2023-08-21] MEDS: DEXAMETHASONE 4 MG TABLET (FP) PO ONE (21:22)
[2023-08-21] MEDS: ACETAMINOPHEN 500 MG TABLET (FP) PO ONE (21:23)
[2023-08-21 23:18] LABS: THROAT:GRP A STREP DETECTED (NOTDETECTED)
== END 2023-08-21 22:18 | disposition home or self-care (01) ==
LOC: FER 20:53
PROC: 3E0233Z Introduction of Anti-inflammatory into Muscle, Percutaneous Approach (ICD-10-PCS; principal; 2023-08-21)
DX: J02.9 Acute pharyngitis, unspecified (principal); R50.9 Fever, unspecified; Z20.822 Contact with and (suspected) exposure to COVID-19
CPT/HCPCS: 0241U-QW; 36415; 86308; 87651; 99284-25